=== PATIENT | female | born 1950 | race Caucasian/White ===

== ENCOUNTER 2016-11-15 13:25 | Emergency (ER) | payer MEDICARE ==
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
--- NOTE | 2016-11-15 15:16 | CT ---
Cervical Spine wo Cont HISTORY: Pain. Dose: Total DLP 1308. COMPARISON: None FINDINGS: Diffuse degenerative change moderate disc space narrowing C5-C6. Bridging anterior osteophy keshia at C4-C5 and C5-C6. No fracture or subluxation. Anterior soft tissues appear normal. The C1-C2 re lationship appears normal. There is moderate bilateral foraminal narrowing C5-C6 from uncinate spurri ng. Impression: Degenerative changes. No acute fracture or subluxation.
--- NOTE | 2016-11-15 15:38 | CT ---
Head wo Cont INDICATION: Headache. Dose: Total DLP 995. FINDINGS: No acute intracranial hemorrhage, mass, or edema. Visualized portions of the paranasal sinu ses and mastoid air cells are clear. Mild chronic white matter change in the periventricular region. Soft tissues are negative. IMPRESSION: 1. Chronic changes. No acute intracranial abnormality.
[2016-11-15] MEDS ORDERED: Ketorolac 60 MG/2 ML SDV IM ONE (15:51)
[2016-11-15 16:25] VITALS: BP 123/67
== END 2016-11-15 16:52 | disposition home or self-care (01) ==
LOC: JP.ED 13:25
DX: M54.2 Cervicalgia (principal); E11.40 Type 2 diabetes mellitus with diabetic neuropathy, unspecified; E11.21 Type 2 diabetes mellitus with diabetic nephropathy; M19.90 Unspecified osteoarthritis, unspecified site; E78.00 Pure hypercholesterolemia, unspecified; J45.909 Unspecified asthma, uncomplicated; I10 Essential (primary) hypertension; E66.9 Obesity, unspecified; Z88.1 Allergy status to other antibiotic agents; Z88.5 Allergy status to narcotic agent; Z79.899 Other long term (current) drug therapy; Z98.51 Tubal ligation status; Z68.41 Body mass index [BMI] 40.0-44.9, adult
CPT/HCPCS: 36415; 70450; 72125; 80053; 85025; 96372; 99284; J1885; 99283

== ENCOUNTER 2019-01-30 14:08 | Emergency (ER) | payer MEDICARE ==
[2019-01-30] MEDS ORDERED: Diphtheria,Pertussis(Acell),Tetanus Vaccine 0.5 ML SDV IM ONE (14:13)
[2019-01-30] MEDS ORDERED: Bacitracin Oint 1 GM U/D Packet TOP ONE (14:14)
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
[2019-01-30 15:13] VITALS: BP 129/54; PULSE 77
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
--- NOTE | 2019-02-21 18:00 | OR ---
DATE OF PROCEDURE: 01/30/2019 SURGEON: Rafi Dennison MD PREOPERATIVE DIAGNOSIS: Laceration, left index finger involving extensor tendon at the distal interphalangeal joint. POSTOPERATIVE DIAGNOSIS: Laceration, left index finger involving extensor tendon at the distal interphalangeal joint. PROCEDURE: Repair of the extensor tendon, left index finger, and closure of laceration. ANESTHESIA: Digital block. INDICATIONS: Ms. Grimes is a very pleasant 68-year-old female who was working on a craft project at home and sustained a laceration of her left index finger from a Dremel blade. The laceration is across the DIP joint and she shows a mallet deformity. I was asked to consult by the ED physician. PROCEDURE IN DETAIL: After adequate digital block was established, the wound was irrigated and cleansed. There was no evidence of foreign material or gross contamination. The ends of the extensor tendon were identified. These were then closed. This was then repaired using a 4-0 nylon with a locking stitch. The skin was then also closed with a 4-0 nylon in interrupted fashion. Sterile dressing was applied and the finger was then splinted in extension. Arrangements were made for followup. She will be discharged on an antibiotic and pain medications. The patient was instructed to maintain extension of the DIP joint. Rafi Dennison MD /[id number]
== END 2019-01-30 17:05 | disposition home or self-care (01) ==
LOC: JP.ED 14:08
DX: S61.211A Laceration without foreign body of left index finger without damage to nail, initial encounter (principal); Z23 Encounter for immunization
CPT/HCPCS: 26418; 90471; 90715; 99283; J2001

== ENCOUNTER 2019-10-16 07:30 | Inpatient (IN) | payer MEDICARE ==
[2019-10-16] MEDS ORDERED: Propofol 200 MG/20 ML SDV ONE ×2 (09:19→11:23)
[2019-10-16] MEDS ORDERED: Midazolam 1 MG/ML 2 ML SDV ONE (09:19)
[2019-10-16] MEDS ORDERED: fentaNYL 100 MCG/2 ML SDV ONE (09:19)
[2019-10-16] MEDS: Dextrose 5%-Lactated Ringers 1,000 ML IV SCH ×2 (09:24→16:17)
[2019-10-16] MEDS ORDERED: Albuterol 8 GM Inhaler INH PRN (14:45)
[2019-10-16] MEDS ORDERED: traZODone 50 MG Tab PO PRN (14:49)
[2019-10-16] MEDS ORDERED: 50% Dextrose in Water 50 ML Syringe IVPUSH PRN (14:51)
[2019-10-16] MEDS ORDERED: Glucose Gel 15 GM in 37.5 GM Tube PO PRN (14:51)
[2019-10-16] MEDS ORDERED: Glucagon,Human Recombinant 1 MG Vial IM PRN (14:51)
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
[2019-10-16] MEDS: ARIPiprazole 10 MG Tab PO SCH (16:30)
[2019-10-16] MEDS: Loratadine 10 MG Tab PO SCH (16:30)
[2019-10-16] MEDS: carBAMazepine 200 MG Tab PO SCH ×2 (16:30→20:27)
[2019-10-16] MEDS: Sertraline 25 MG Tab PO SCH (16:31)
[2019-10-16] MEDS: Mirabegron 25 MG Tab Extended Release PO SCH (16:31)
[2019-10-16] MEDS: Magnesium Sulfate/Water 2 GM in Premix Bag 1 BAG IV SCH ×2 (16:32→21:09)
[2019-10-16] MEDS: Insulin Lispro 100 Unit/ML 3 ML KwikPen SUBCUT PRN ×2 (16:39→20:27)
[2019-10-16] MEDS: traZODone 50 MG Tab PO SCH (20:27)
[2019-10-16] MEDS: Latanoprost 0.005% Ophth Soln 2.5 ML Bottle EYELF SCH (20:28)
[2019-10-16] MEDS ORDERED: Insulin Glargine,Human Rec. Analog 100 Units/ML 3 ML Pen SUBCUT ONE (21:00)
[2019-10-16] MEDS ORDERED: FLOVENT INH SCH (21:00)
[2019-10-16] MEDS ORDERED: PULMICORT INH SCH (21:00)
[2019-10-17] MEDS: Dextrose 5%-Lactated Ringers 1,000 ML IV SCH (02:19)
[2019-10-17] MEDS ORDERED: Albuterol 8 GM Inhaler INH ONE (06:00)
[2019-10-17] MEDS ORDERED: cefOXitin 2 GM in Sodium Chloride 0.9% 50 ML IV ONE (06:00)
[2019-10-17] MEDS ORDERED: Naloxone 0.4 MG/ML SDV IVPUSH PRN ×2 (06:00→09:00)
[2019-10-17] MEDS ORDERED: Lidocaine 1% with EPINEPHrine 1:100,000 50 ML MDV ONE (06:30)
[2019-10-17] MEDS ORDERED: Bupivacaine 0.5% 50 ML MDV ONE (06:30)
[2019-10-17] MEDS ORDERED: fentaNYL 250 MCG/5 ML SDV ONE (06:33)
[2019-10-17] MEDS ORDERED: Dexamethasone 4 MG/ML SDV ONE (06:34)
[2019-10-17] MEDS ORDERED: Succinylcholine 200 MG/10 ML MDV ONE (06:34)
[2019-10-17] MEDS ORDERED: Ondansetron 4 MG/2 ML SDV ONE (06:34)
[2019-10-17] MEDS ORDERED: Propofol 200 MG/20 ML SDV ONE (06:34)
[2019-10-17] MEDS ORDERED: Rocuronium 50 MG/5 ML Vial ONE (06:34)
[2019-10-17] MEDS ORDERED: Glycopyrrolate 0.2 MG/ML 5 ML MDV ONE (06:34)
[2019-10-17] MEDS ORDERED: Neostigmine Methylsulfate 1 MG/ML 5 ML Syringe ONE (06:34)
[2019-10-17] MEDS: carBAMazepine 200 MG Tab PO SCH ×3 (06:35→20:28)
[2019-10-17] MEDS ORDERED: Sodium Chloride 0.9% 10 ML ONE (07:14)
[2019-10-17] MEDS ORDERED: Meropenem 500 MG SDV ONE (07:29)
[2019-10-17] MEDS ORDERED: Lactated Ringers 1,000 ML ONE (07:33)
[2019-10-17] MEDS ORDERED: Naloxone 0.4 MG/ML SDV IV PRN (09:00)
[2019-10-17] MEDS ORDERED: diphenhydrAMINE 50 MG/ML SDV IVPUSH PRN (09:00)
[2019-10-17] MEDS: Dextrose 5%-Lactated Ringers 1,000 ML with Naloxone 0.4 MG IV SCH ×6 (09:16→23:08)
[2019-10-17] MEDS ORDERED: Ondansetron 4 MG/2 ML SDV IVPUSH PRN (10:00)
[2019-10-17] MEDS: Insulin Lispro 100 Unit/ML 3 ML KwikPen SUBCUT PRN (10:09)
[2019-10-17] MEDS: hydrOXYzine HCL 100 MG/2 ML SDV IM PRN (10:09)
[2019-10-17] MEDS: ARIPiprazole 10 MG Tab PO SCH (10:10)
[2019-10-17] MEDS: Sertraline 25 MG Tab PO SCH (10:11)
[2019-10-17] MEDS: Mirabegron 25 MG Tab Extended Release PO SCH (10:11)
[2019-10-17] MEDS: Pantoprazole 40 MG Vial IVPUSH SCH (10:11)
[2019-10-17] MEDS: Acetaminophen 325 MG Tab PO SCH ×3 (10:12→22:22)
[2019-10-17] MEDS: Loratadine 10 MG Tab PO SCH (10:16)
[2019-10-17] MEDS: Phenol/Sodium Phenolate Spray 180 ML Bottle MUCMEM PRN ×2 (10:27→13:02)
[2019-10-17] MEDS ORDERED: Lactated Ringers 500 ML IV ONE ×2 (12:15→14:15)
[2019-10-17] MEDS: cefOXitin 2 GM in Sodium Chloride 0.9% 50 ML IV SCH ×2 (13:18→19:57)
[2019-10-17] MEDS: Magnesium Sulfate/Water 2 GM in Premix Bag 1 BAG IV SCH ×2 (13:54→19:57)
--- NOTE | 2019-10-17 15:27 | PCM.CONSN ---
- General Info Date of Service: 10/17/19 Subjective Update: Ms. Grimes has remained stable since admission yesterday. She was taken to the operating room earlier this morning for partial colon resection and management of her large sessile polyp. She has been stable during the initial postoperative period. - Review of Systems Pulmonary: Reports: No Symptoms Cardiovascular: Reports: No Symptoms Gastrointestinal: Reports: Abdominal Pain. Denies: Diarrhea, Difficulty Swallowing, Nausea, Vomiting - Patient Data Vitals - Most Recent: Last Vital Signs Temp 97.5 F 10/17/19 11:00 Pulse 72 10/17/19 08:45 Resp 12 10/17/19 13:00 BP 129/61 10/17/19 13:00 Pulse Ox 96 10/17/19 13:00 Weight - Most Recent: 214 lb I&O - Last 24 Hours: Intake & Output 10/17/19 10/17/19 10/17/19 06:59 14:59 22:59 Intake Total 1153 550 Output Total 717 Balance 1153 -167 Lab Results Last 24 Hours: Laboratory Results - last 24 hr 10/16/19 10/17/19 10/17/19 Range/Units 13:55 05:50 09:31 Magnesium 2.4 D (1.8-2.4) mg/dL NT-Pro-B Natriuret Pep 293 H (5-125) pg/mL Carcinoembryonic Ag 1.0 (0.0-4.7) ng/mL Med Orders - Current: Current Medications Acetaminophen (Tylenol) 650 mg PO Q6H [facility] Last Admin: 10/17/19 10:12 Dose: 650 mg Documented by: Albuterol (Ventolin Hfa) 2 gm INH Q4H PRN PRN Reason: Shortness of Breath Aripiprazole (Abilify) 2.5 mg PO DAILY [facility] Last Admin: 10/17/19 10:10 Dose: 2.5 mg Documented by: Carbamazepine (Tegretol Tab) 200 mg PO TID [facility] Last Admin: 10/17/19 06:35 Dose: 200 mg Documented by: Dextrose (Glutose 15) 15 gm PO ASDIRECTED PRN PRN Reason: HYPOGLYCEMIA Dextrose/Water (Dextrose 50% In Water) 50 ml IVPUSH ASDIRECTED PRN PRN Reason: HYPOGLYCEMIA Diphenhydramine HCl (Benadryl) 25 mg IVPUSH Q6H PRN PRN Reason: ITCHING Glucagon (Glucagen) 1 mg IM ASDIRECTED PRN PRN Reason: HYPOGLYCEMIA Hydroxyzine HCl (Vistaril) 75 mg IM Q4H PRN PRN Reason: PAIN Last Admin: 10/17/19 10:09 Dose: 75 mg Documented by: Fentanyl 2,500 mcg/ Sodium (Chloride) 250 mls @ 0 mls/hr EPIDUR TITRATE [facility]; Protocol Naloxone HCl 0.4 mg/ Dextrose/ (Lactated Ringer's) 1,001 mls @ 150 mls/hr IV .Q6H41M [facility] Last Admin: 10/17/19 09:16 Dose: 150 mls/hr Documented by: Cefoxitin Sodium 2 gm/ Sodium (Chloride) 50 mls @ 100 mls/hr IV Q6H [facility] Stop: 10/18/19 14:29 Last Admin: 10/17/19 13:18 Dose: 100 mls/hr Documented by: Magnesium Sulfate 2 gm/ Premix 50 mls @ 25 mls/hr IV Q6H [facility] Last Admin: 10/17/19 13:54 Dose: 25 mls/hr Documented by: Insulin Human Lispro (Humalog) 0 unit SUBCUT Q6H [facility]; Protocol Latanoprost (Xalatan 0.005% Ophth Soln) 0 ml EYELF BEDTIME [facility] Last Admin: 10/16/19 20:28 Dose: 1 drop Documented by: Loratadine (Claritin) 10 mg PO DAILY [facility] Last Admin: 10/17/19 10:16 Dose: Not Given Documented by: Mirabegron (Myrbetriq) 50 mg PO DAILY [facility] Last Admin: 10/17/19 10:11 Dose: 50 mg Documented by: Naloxone HCl (Narcan) 0.1 mg IVPUSH Q5M PRN PRN Reason: RESP RATE LESS THAN 6/MINUTE Naloxone HCl (Narcan) 0.4 mg IV ASDIRECTED PRN PRN Reason: ITCHING Ondansetron HCl (Zofran) 4 mg IVPUSH Q4H PRN PRN Reason: Nausea/Vomiting Pantoprazole Sodium (Protonix Iv) 40 mg IVPUSH Q24H [facility] Last Admin: 10/17/19 10:11 Dose: 40 mg Documented by: Phenol (Phenaseptic Liquid) 0 ml MUCMEM Q2H PRN PRN Reason: Sore Throat Last Admin: 10/17/19 13:02 Dose: 1 dose Documented by: Quinapril HCl (Accupril) 10 mg PO DAILY [facility] Last Admin: 10/17/19 10:10 Dose: 10 mg Documented by: Sertraline HCl (Zoloft) 75 mg PO DAILY [facility] Last Admin: 10/17/19 10:11 Dose: 75 mg Documented by: Trazodone HCl (Trazodone) 150 mg PO BEDTIME [facility] Last Admin: 10/16/19 20:27 Dose: 150 mg Documented by: Trazodone HCl (Trazodone) 12.5 - 50 mg PO ASDIRECTED PRN PRN Reason: * Discontinued Medications Albuterol (Ventolin Hfa) 0 gm INH ONETIME ONE Stop: 10/17/19 06:01 Last Admin: 10/17/19 06:37 Dose: 2 inh Documented by: Bupivacaine HCl (Marcaine 0.5%) Confirm Administered Dose 50 ml .ROUTE .STK-MED ONE Stop: 10/17/19 06:31 Carbamazepine (Tegretol Tab) 200 mg PO TID [facility] Stop: 10/16/19 21:01 Last Admin: 10/16/19 20:27 Dose: 200 mg Documented by: Dexamethasone (Dexamethasone) Confirm Administered Dose 4 mg .ROUTE .STK-MED ONE Stop: 10/17/19 06:35 Diphenhydramine HCl (Benadryl) 50 mg IVPUSH Q6H PRN PRN Reason: ITCHING Fentanyl (Sublimaze) Confirm Administered Dose 100 mcg .ROUTE .STK-MED ONE Stop: 10/16/19 09:20 Fentanyl (Sublimaze) Confirm Administered Dose 250 mcg .ROUTE .STK-MED ONE Stop: 10/17/19 06:34 Glycopyrrolate (Robinul) Confirm Administered Dose 1 mg .ROUTE .STK-MED ONE Stop: 10/17/19 06:35 Dextrose/Lactated Ringer's (Dextrose 5%-Lactated Ringers) 1,000 mls @ 100 mls/hr IV ASDIRECTED [facility] Last Admin: 10/17/19 02:19 Dose: 100 mls/hr Documented by: Cefoxitin Sodium 2 gm/ Sodium (Chloride) 50 mls @ 100 mls/hr IV ONCALL ONE Stop: 10/17/19 06:29 Last Admin: 10/17/19 06:34 Dose: 100 mls/hr Documented by: Magnesium Sulfate 2 gm/ Premix 50 mls @ 25 mls/hr IV Q6H [facility] Stop: 10/16/19 23:59 Last Admin: 10/16/19 21:09 Dose: 25 mls/hr Documented by: Sodium Chloride (Normal Saline) Confirm Administered Dose 10 mls @ as directed .ROUTE .STK-MED ONE Stop: 10/17/19 07:15 Lactated Ringer's (Ringers, Lactated) Confirm Administered Dose 1,000 mls @ as directed .ROUTE .STK-MED ONE Stop: 10/17/19 07:34 Lactated Ringer's (Ringers, Lactated) 500 mls @ 500 mls/hr IV ONETIME ONE Stop: 10/17/19 13:14 Last Admin: 10/17/19 12:15 Dose: 500 mls/hr Documented by: Lactated Ringer's (Ringers, Lactated) 500 mls @ 500 mls/hr IV ONETIME ONE Stop: 10/17/19 15:14 Insulin Glargine (Lantus Solostar) 10 units SUBCUT ONETIME ONE Stop: 10/16/19 21:01 Last Admin: 10/16/19 20:26 Dose: 10 units Documented by: Insulin Human Lispro (Humalog) 0 unit SUBCUT Q6H PRN; Protocol PRN Reason: MEDIUM CORRECTIONAL DOSING Last Admin: 10/17/19 10:09 Dose: 3 units Documented by: Lidocaine/Epinephrine (Xylocaine 1% With Epinephrine 1:100,000) Confirm Administered Dose 50 ml .ROUTE .STK-MED ONE Stop: 10/17/19 06:31 Meropenem (Merrem) Confirm Administered Dose 500 mg .ROUTE .STK-MED ONE Stop: 10/17/19 07:30 Last Admin: 10/17/19 07:53 Dose: 500 mg Documented by: Midazolam HCl (Versed 1 Mg/Ml) Confirm Administered Dose 2 mg .ROUTE .STK-MED ONE Stop: 10/16/19 09:20 Neostigmine Methylsulfate (Neostigmine) Confirm Administered Dose 5 mg .ROUTE .STK-MED ONE Stop: 10/17/19 06:35 Ondansetron HCl (Zofran) Confirm Administered Dose 4 mg .ROUTE .STK-MED ONE Stop: 10/17/19 06:35 Propofol (Diprivan 20 Ml) Confirm Administered Dose 200 mg .ROUTE .STK-MED ONE Stop: 10/16/19 09:20 Propofol (Diprivan 20 Ml) Confirm Administered Dose 200 mg .ROUTE .STK-MED ONE Stop: 10/16/19 11:24 Propofol (Diprivan 20 Ml) Confirm Administered Dose 200 mg .ROUTE .STK-MED ONE Stop: 10/17/19 06:35 Rocuronium Nelson (Zemuron) Confirm Administered Dose 50 mg .ROUTE .STK-MED ONE Stop: 10/17/19 06:35 Succinylcholine Chloride (Quelicin) Confirm Administered Dose 200 mg .ROUTE .STK-MED ONE Stop: 10/17/19 06:35 - Exam Quality Assessment: DVT Prophylaxis General: Sedated, Lethargic Lungs: Clear to Auscultation, Normal Respiratory Effort Cardiovascular: Regular Rate, Regular Rhythm, No Murmurs GI/Abdominal Exam: Soft, No Organomegaly, Tender. No: Distended, Guarding, Rigid, Rebound Extremities: Non-Tender, No Pedal Edema Sepsis Event Note - Evaluation Sepsis Screening Result: No Definite Risk - Focused Exam Vital Signs: Vital Signs Temp Pulse Resp BP BP Pulse Ox 10/17/19 13:00 12 129/61 96 10/17/19 12:00 12 110/59 L 94 L 10/17/19 11:30 12 127/64 96 10/17/19 11:00 97.5 F 12 143/64 H 93 L 10/17/19 10:30 13 129/104 H 96 10/17/19 10:10 127/50 L 10/17/19 10:00 13 127/50 L 96 10/17/19 09:46 12 141/58 H 96 10/17/19 09:31 96.6 F L 12 139/58 L 94 L 10/17/19 09:23 12 146/56 H 94 L 10/17/19 09:02 12 158/62 H 90 L 10/17/19 08:45 96.8 F L 72 14 169/72 H 99 10/17/19 08:40 72 14 166/74 H 99 10/17/19 08:35 75 14 167/78 H 100 10/17/19 08:30 96.3 F L 73 14 146/69 H 99 10/17/19 08:25 75 14 164/69 H 10/17/19 08:20 77 14 165/69 H 99 10/17/19 08:15 96.8 F L 77 12 165/63 H 94 L 10/17/19 04:00 96.6 F L 77 16 138/50 L 98 Consult PN Assessment/Plan Procedures: Procedures ASSAY OF CREATININE (06/13/18) ASSAY OF LACTIC ACID (01/09/18) ASSAY OF LIPASE (01/09/18) ASSAY OF TROPONIN QUANT (02/01/13) BREAST TOMOSYNTHESIS BI (04/25/18) C-REACTIVE PROTEIN (01/09/18) CHEST X-RAY 2VW FRONTAL&LATL (02/01/13) COMP SCREEN MAMMOGRAM ADD-ON (01/06/16) COMPLETE CBC W/AUTO DIFF WBC (01/09/18) COMPREHEN METABOLIC PANEL (01/09/18) CT HEAD/BRAIN W/O DYE (11/15/16) CT LUMBAR SPINE W/O DYE (12/11/13) CT NECK SPINE W/O DYE (11/15/16) CT UPPER EXTREMITY W/O DYE (04/03/16) CULTURE OTHR SPECIMN AEROBIC (05/12/15) ELECTROCARDIOGRAM TRACING (02/01/13) EMERGENCY DEPT VISIT (01/30/19) EMERGENCY DEPT VISIT (01/09/18) EMERGENCY DEPT VISIT (09/19/14) EMERGENCY DEPT VISIT (09/19/14) EMERGENCY DEPT VISIT (09/03/13) EMERGENCY DEPT VISIT (09/03/13) EVALUATION OF WHEEZING (04/03/15) EXC TR-EXT B9+CHELSEY 2.1-3CM (05/21/15) EXTRACRANIAL BILAT STUDY (09/24/13) HOT OR COLD PACKS THERAPY (03/01/17) HYDRATE IV INFUSION ADD-ON (01/09/18) IMMUNIZATION ADMIN (01/30/19) INFLUENZA ASSAY W/OPTIC (01/09/18) METABOLIC PANEL TOTAL CA (04/03/16) MRI BRAIN STEM W/O & W/DYE (06/13/18) MRI JOINT UPR EXTREM W/O DYE (06/15/17) MRI LUMBAR SPINE W/O DYE (09/26/13) ORTHOTIC MGMT&TRAING 1ST ENC (02/02/17) OT EVAL LOW COMPLEX 30 MIN (02/02/17) OT EVALUATION (07/11/14) PT EVAL LOW COMPLEX 20 MIN (01/11/17) REPAIR FINGER TENDON (01/30/19) ROUTINE VENIPUNCTURE (06/13/18) SCR MAMMO BI INCL CAD (04/25/18) SMEAR GRAM STAIN (05/12/15) TDAP VACCINE 7 YRS/> IM (01/30/19) THER/PROPH/DIAG INJ IV PUSH (01/09/18) THER/PROPH/DIAG INJ SC/IM (11/15/16) THER/PROPH/DIAG IV INF INIT (02/01/13) THERAPEUTIC EXERCISES (03/01/17) TX/PRO/DX INJ NEW DRUG ADDON (01/09/18) TX/PRO/DX INJ SAME DRUG GETTER FILLER (01/09/18) ULTRASOUND THERAPY (07/11/14) URINALYSIS AUTO W/SCOPE (01/09/18) X-RAY EXAM L-S SPINE 2/3 VWS (12/11/13) X-RAY EXAM OF SHOULDER (04/03/16) Problem List Initiated/Reviewed/Updated: Yes Plan: ASSESSMENT AND RECOMMENDATIONS RECENT HEMATOCHEZIA SECONDARY TO A LARGE SESSILE POLYP-status post surgery earlier today for partial colon resection -Surgical care per Dr. Kaiser TYPE 2 DIABETES [id number] by recent history -Long-acting insulin as ordered by Dr. Kaiser -4 times daily glucometers -Low-dose sliding scale Humalog HISTORY OF ASTHMA-minimal symptoms, rarely requires use of her inhaler -Albuterol as needed CHRONIC KIDNEY DISEASE STAGE IIIa -Closely monitor urine output and renal function
[2019-10-17] MEDS: Insulin Lispro 100 Unit/ML 3 ML KwikPen SUBCUT SCH ×2 (16:28→22:23)
[2019-10-17] MEDS: traZODone 50 MG Tab PO SCH (20:28)
[2019-10-17] MEDS: Latanoprost 0.005% Ophth Soln 2.5 ML Bottle EYELF SCH (20:28)
[2019-10-17] MEDS: diphenhydrAMINE 50 MG/ML SDV IVPUSH PRN (22:23)
[2019-10-18] MEDS: cefOXitin 2 GM in Sodium Chloride 0.9% 50 ML IV SCH ×3 (01:53→14:19)
[2019-10-18] MEDS: Magnesium Sulfate/Water 2 GM in Premix Bag 1 BAG IV SCH ×4 (01:53→20:27)
[2019-10-18] MEDS: hydrOXYzine HCL 100 MG/2 ML SDV IM PRN (02:00)
[2019-10-18] MEDS: Acetaminophen 325 MG Tab PO SCH ×4 (03:54→21:29)
[2019-10-18] MEDS: fentaNYL 2,500 MCG in Sodium Chloride 0.9% 200 ML EPIDUR SCH (04:08)
[2019-10-18] MEDS: Insulin Lispro 100 Unit/ML 3 ML KwikPen SUBCUT SCH ×4 (05:04→21:28)
[2019-10-18] MEDS: Dextrose 5%-Lactated Ringers 1,000 ML with Naloxone 0.4 MG IV SCH ×6 (05:46→15:37)
[2019-10-18] MEDS: diphenhydrAMINE 50 MG/ML SDV IVPUSH PRN ×2 (08:33→16:29)
[2019-10-18] MEDS: Mirabegron 25 MG Tab Extended Release PO SCH (08:48)
[2019-10-18] MEDS: ARIPiprazole 10 MG Tab PO SCH (08:49)
[2019-10-18] MEDS: Loratadine 10 MG Tab PO SCH (08:49)
[2019-10-18] MEDS: carBAMazepine 200 MG Tab PO SCH ×3 (08:53→21:29)
[2019-10-18] MEDS: Sertraline 25 MG Tab PO SCH (08:54)
[2019-10-18] MEDS: Potassium Phos in 0.9 % NaCl 15 MMOL in Premix Bag 1 BAG IV SCH ×6 (10:00→14:21)
--- NOTE | 2019-10-18 10:17 | PCM.CONSN ---
- General Info Date of Service: 10/18/19 Subjective Update: Ms. Grimes has remained stable following surgery yesterday. Vital signs have remained good and she has been afebrile. Denies any symptoms of chest pain or shortness of breath. Renal function relatively stable compared to baseline. Functional Status: Reports: Tolerating Diet, Ambulating - Review of Systems General: Reports: Weakness, Fatigue. Denies: Fever, Chills Pulmonary: Reports: No Symptoms Cardiovascular: Reports: No Symptoms Gastrointestinal: Reports: Abdominal Pain. Denies: Difficulty Swallowing, Flatus, Hematochezia, Melena, Nausea, Vomiting Genitourinary: Reports: No Symptoms - Patient Data Vitals - Most Recent: Last Vital Signs Temp 98.9 F 10/18/19 07:42 Pulse 75 10/18/19 07:42 Resp 16 10/18/19 07:42 BP 134/56 L 10/18/19 08:48 Pulse Ox 95 10/18/19 07:42 Weight - Most Recent: 214 lb I&O - Last 24 Hours: Intake & Output 10/17/19 10/18/19 10/18/19 22:59 06:59 14:59 Intake Total 1831 2099 770 Output Total 395 830 80 Balance 1436 1269 690 Lab Results Last 24 Hours: Laboratory Results - last 24 hr 10/18/19 10/18/19 Range/Units 04:00 04:30 WBC 8.8 (4.5-11.0) K/uL RBC 3.35 (3.30-5.50) M/uL Hgb 10.0 L (12.0-15.0) g/dL Hct 32.6 L (36.0-48.0) % MCV 97 (80-98) fL MCH 30 (27-31) pg MCHC 31 L (32-36) % Plt Count 177 (150-400) K/uL Sodium 139 L (140-148) mmol/L Potassium 4.0 (3.6-5.2) mmol/L Chloride 106 (100-108) mmol/L Carbon Dioxide 29 (21-32) mmol/L Anion Gap 8.0 (5.0-14.0) mmol/L BUN 7 D (7-18) mg/dL Creatinine 1.2 H (0.6-1.0) mg/dL Est Cr Clr Drug Dosing 34.01 mL/min Estimated GFR (MDRD) 44 L (>60) Glucose 197 H (74-106) mg/dL Calcium 8.1 L (8.5-10.1) mg/dL Phosphorus 2.3 L (2.5-4.9) mg/dL Total Bilirubin 0.3 (0.2-1.0) mg/dL AST 15 (15-37) U/L ALT 18 (12-78) U/L Alkaline Phosphatase 70 (46-116) U/L NT-Pro-B Natriuret Pep 784 H (5-125) pg/mL Total Protein 5.9 L (6.4-8.2) g/dL Albumin 2.6 L (3.4-5.0) g/dL Globulin 3.3 (2.3-3.5) g/dL Albumin/Globulin Ratio 0.8 L (1.2-2.2) Med Orders - Current: Current Medications Acetaminophen (Tylenol) [address] [facility] Last Admin: 10/18/19 09:37 Dose: 650 mg Documented by: Albuterol (Ventolin Hfa) 2 gm INH Q4H PRN PRN Reason: Shortness of Breath Aripiprazole (Abilify) 2.[address] [facility] Last Admin: 10/18/19 08:49 Dose: 2.5 mg Documented by: Carbamazepine (Tegretol Tab) [address] [facility] Last Admin: 10/18/19 08:53 Dose: 200 mg Documented by: Ropivacaine 48 ml/Dexamethasone 8 mg/Epinephrine HCl 0.4 mg/ Sodium Chloride 29.6 ml [address] [facility] Dextrose (Glutose 15) 15 gm PO ASDIRECTED PRN PRN Reason: HYPOGLYCEMIA Dextrose/Water (Dextrose 50% In Water) 50 ml IVPUSH ASDIRECTED PRN PRN Reason: HYPOGLYCEMIA Diphenhydramine HCl (Benadryl) 25 mg IVPUSH Q6H PRN PRN Reason: ITCHING Last Admin: 10/18/19 08:33 Dose: 25 mg Documented by: Glucagon (Glucagen) 1 mg IM ASDIRECTED PRN PRN Reason: HYPOGLYCEMIA Hydroxyzine HCl (Vistaril) 75 mg IM Q4H PRN PRN Reason: PAIN Last Admin: 10/18/19 02:00 Dose: 75 mg Documented by: Fentanyl 2,500 mcg/ Sodium (Chloride) 250 mls @ 0 mls/hr EPIDUR TITRATE [facility]; Protocol Last Admin: 10/18/19 04:08 Dose: 120 mcg/hr, 12 mls/hr Documented by: Cefoxitin Sodium 2 gm/ Sodium (Chloride) 50 mls @ 100 mls/hr IV Q6H [facility] Stop: 10/18/19 14:29 Last Admin: 10/18/19 07:53 Dose: 100 mls/hr Documented by: Magnesium Sulfate 2 gm/ Premix 50 mls @ 25 mls/hr IV Q6H [facility] Stop: 10/19/19 09:59 Last Admin: 10/18/19 07:56 Dose: 25 mls/hr Documented by: Naloxone HCl 0.4 mg/ Dextrose/ (Lactated Ringer's) 1,001 mls @ 80 mls/hr IV .[id number] [facility] Last Admin: 10/18/19 08:46 Dose: Not Given Documented by: Potassium Phosphate 15 mmol/ (Premix) 250 mls @ 125 mls/hr IV Q2H [facility] Stop: 10/18/19 14:59 Last Admin: 10/18/19 10:00 Dose: 125 mls/hr Documented by: Insulin Human Lispro (Humalog) [address] [facility]; Protocol Last Admin: 10/18/19 05:04 Dose: 3 unit Documented by: Latanoprost (Xalatan 0.005% Ophth Soln) [address] [facility] Last Admin: 10/17/19 20:28 Dose: 1 drop Documented by: Loratadine (Claritin) [address] [facility] Last Admin: 10/18/19 08:49 Dose: 10 mg Documented by: Mirabegron (Myrbetriq) [address] [facility] Last Admin: 10/18/19 08:48 Dose: 50 mg Documented by: Naloxone HCl (Narcan) 0.1 mg IVPUSH Q5M PRN PRN Reason: RESP RATE LESS THAN 6/MINUTE Naloxone HCl (Narcan) 0.4 mg IV ASDIRECTED PRN PRN Reason: ITCHING Ondansetron HCl (Zofran) 4 mg IVPUSH Q4H PRN PRN Reason: Nausea/Vomiting Pantoprazole Sodium (Protonix Iv) [address] [facility] Last Admin: 10/17/19 10:11 Dose: 40 mg Documented by: Phenol (Phenaseptic Liquid) 0 ml MUCMEM Q2H PRN PRN Reason: Sore Throat Last Admin: 10/17/19 13:02 Dose: 1 dose Documented by: Quinapril HCl (Accupril) [address] [facility] Last Admin: 10/18/19 08:48 Dose: 10 mg Documented by: Sertraline HCl (Zoloft) [address] [facility] Last Admin: 10/18/19 08:54 Dose: 75 mg Documented by: Trazodone HCl (Trazodone) [address] [facility] Last Admin: 10/17/19 20:28 Dose: 150 mg Documented by: Trazodone HCl (Trazodone) 12.5 - 50 mg PO ASDIRECTED PRN PRN Reason: * Discontinued Medications Albuterol (Ventolin Hfa) 0 gm INH ONETIME ONE Stop: 10/17/19 06:01 Last Admin: 10/17/19 06:37 Dose: 2 inh Documented by: Bupivacaine HCl (Marcaine 0.5%) Confirm Administered Dose 50 ml .ROUTE .STK-MED ONE Stop: 10/17/19 06:31 Carbamazepine (Tegretol Tab) [address] [facility] Stop: 10/16/19 21:01 Last Admin: 10/16/19 20:27 Dose: 200 mg Documented by: Dexamethasone (Dexamethasone) Confirm Administered Dose 4 mg .ROUTE .STK-MED ONE Stop: 10/17/19 06:35 Diphenhydramine HCl (Benadryl) 50 mg IVPUSH Q6H PRN PRN Reason: ITCHING Fentanyl (Sublimaze) Confirm Administered Dose 100 mcg .ROUTE .STK-MED ONE Stop: 10/16/19 09:20 Fentanyl (Sublimaze) Confirm Administered Dose 250 mcg .ROUTE .STK-MED ONE Stop: 10/17/19 06:34 Glycopyrrolate (Robinul) Confirm Administered Dose 1 mg .ROUTE .STK-MED ONE Stop: 10/17/19 06:35 Dextrose/Lactated Ringer's (Dextrose 5%-Lactated Ringers) 1,000 mls @ 100 mls/hr IV ASDIRECTED [facility] Last Admin: 10/17/19 02:19 Dose: 100 mls/hr Documented by: Cefoxitin Sodium 2 gm/ Sodium (Chloride) 50 mls @ 100 mls/hr IV ONCALL ONE Stop: 10/17/19 06:29 Last Admin: 10/17/19 06:34 Dose: 100 mls/hr Documented by: Magnesium Sulfate 2 gm/ Premix 50 mls @ 25 mls/hr IV Q6H [facility] Stop: 10/16/19 23:59 Last Admin: 10/16/19 21:09 Dose: 25 mls/hr Documented by: Sodium Chloride (Normal Saline) Confirm Administered Dose 10 mls @ as directed .ROUTE .STK-MED ONE Stop: 10/17/19 07:15 Lactated Ringer's (Ringers, Lactated) Confirm Administered Dose 1,000 mls @ as directed .ROUTE .STK-MED ONE Stop: 10/17/19 07:34 Naloxone HCl 0.4 mg/ Dextrose/ (Lactated Ringer's) 1,001 mls @ 150 mls/hr IV .Q6H41M [facility] Last Admin: 10/18/19 05:46 Dose: 150 mls/hr Documented by: Lactated Ringer's (Ringers, Lactated) 500 mls @ 500 mls/hr IV ONETIME ONE Stop: 10/17/19 13:14 Last Admin: 10/17/19 12:15 Dose: 500 mls/hr Documented by: Lactated Ringer's (Ringers, Lactated) 500 mls @ 500 mls/hr IV ONETIME ONE Stop: 10/17/19 15:14 Last Admin: 10/17/19 14:15 Dose: 500 mls/hr Documented by: Insulin Glargine (Lantus Solostar) 10 units SUBCUT ONETIME ONE Stop: 10/16/19 21:01 Last Admin: 10/16/19 20:26 Dose: 10 units Documented by: Insulin Human Lispro (Humalog) 0 unit SUBCUT Q6H PRN; Protocol PRN Reason: MEDIUM CORRECTIONAL DOSING Last Admin: 10/17/19 10:09 Dose: 3 units Documented by: Lidocaine/Epinephrine (Xylocaine 1% With Epinephrine 1:100,000) Confirm Administered Dose 50 ml .ROUTE .STK-MED ONE Stop: 10/17/19 06:31 Meropenem (Merrem) Confirm Administered Dose 500 mg .ROUTE .STK-MED ONE Stop: 10/17/19 07:30 Last Admin: 10/17/19 07:53 Dose: 500 mg Documented by: Midazolam HCl (Versed 1 Mg/Ml) Confirm Administered Dose 2 mg .ROUTE .STK-MED ONE Stop: 10/16/19 09:20 Neostigmine Methylsulfate (Neostigmine) Confirm Administered Dose 5 mg .ROUTE .STK-MED ONE Stop: 10/17/19 06:35 Ondansetron HCl (Zofran) Confirm Administered Dose 4 mg .ROUTE .STK-MED ONE Stop: 10/17/19 06:35 Propofol (Diprivan 20 Ml) Confirm Administered Dose 200 mg .ROUTE .STK-MED ONE Stop: 10/16/19 09:20 Propofol (Diprivan 20 Ml) Confirm Administered Dose 200 mg .ROUTE .STK-MED ONE Stop: 10/16/19 11:24 Propofol (Diprivan 20 Ml) Confirm Administered Dose 200 mg .ROUTE .STK-MED ONE Stop: 10/17/19 06:35 Rocuronium [place] (Zemuron) Confirm Administered Dose 50 mg .ROUTE .STK-MED ONE Stop: 10/17/19 06:35 Succinylcholine Chloride (Quelicin) Confirm Administered Dose 200 mg .ROUTE .STK-MED ONE Stop: 10/17/19 06:35 - Exam Quality Assessment: Urine Catheter, DVT Prophylaxis General: Alert, Oriented, Cooperative, Moderate Distress Lungs: Clear to Auscultation, Normal Respiratory Effort Cardiovascular: Regular Rate, Regular Rhythm, No Murmurs GI/Abdominal Exam: Soft, No Organomegaly, Tender. No: Distended, Guarding, Rigid, Rebound Extremities: Non-Tender, No Pedal Edema Sepsis Event Note - Evaluation Sepsis Screening Result: No Definite Risk - Focused Exam Vital Signs: Vital Signs Temp Pulse Resp BP BP Pulse Ox 10/18/19 08:48 134/56 L 10/18/19 07:42 98.9 F 75 16 134/56 L 95 10/18/19 07:31 93 L 10/18/19 04:00 98.7 F 73 12 130/48 L 92 L 10/18/19 00:00 98.6 F 11 L 135/58 L 98 Consult PN Assessment/Plan Procedures: Procedures ASSAY OF CREATININE (06/13/18) ASSAY OF LACTIC ACID (01/09/18) ASSAY OF LIPASE (01/09/18) ASSAY OF TROPONIN QUANT (02/01/13) BREAST TOMOSYNTHESIS BI (04/25/18) C-REACTIVE PROTEIN (01/09/18) CHEST X-RAY 2VW FRONTAL&LATL (02/01/13) COMP SCREEN MAMMOGRAM ADD-ON (01/06/16) COMPLETE CBC W/AUTO DIFF WBC (01/09/18) COMPREHEN METABOLIC PANEL (01/09/18) CT HEAD/BRAIN W/O DYE (11/15/16) CT LUMBAR SPINE W/O DYE (12/11/13) CT NECK SPINE W/O DYE (11/15/16) CT UPPER EXTREMITY W/O DYE (04/03/16) CULTURE OTHR SPECIMN AEROBIC (05/12/15) ELECTROCARDIOGRAM TRACING (02/01/13) EMERGENCY DEPT VISIT (01/30/19) EMERGENCY DEPT VISIT (01/09/18) EMERGENCY DEPT VISIT (09/19/14) EMERGENCY DEPT VISIT (09/19/14) EMERGENCY DEPT VISIT (09/03/13) EMERGENCY DEPT VISIT (09/03/13) EVALUATION OF WHEEZING (04/03/15) EXC TR-EXT B9+CHELSEY 2.1-3CM (05/21/15) EXTRACRANIAL BILAT STUDY (09/24/13) HOT OR COLD PACKS THERAPY (03/01/17) HYDRATE IV INFUSION ADD-ON (01/09/18) IMMUNIZATION ADMIN (01/30/19) INFLUENZA ASSAY W/OPTIC (01/09/18) METABOLIC PANEL TOTAL CA (04/03/16) MRI BRAIN STEM W/O & W/DYE (06/13/18) MRI JOINT UPR EXTREM W/O DYE (06/15/17) MRI LUMBAR SPINE W/O DYE (09/26/13) ORTHOTIC MGMT&TRAING 1ST ENC (02/02/17) OT EVAL LOW COMPLEX 30 MIN (02/02/17) OT EVALUATION (07/11/14) PT EVAL LOW COMPLEX 20 MIN (01/11/17) REPAIR FINGER TENDON (01/30/19) ROUTINE VENIPUNCTURE (06/13/18) SCR MAMMO BI INCL CAD (04/25/18) SMEAR GRAM STAIN (05/12/15) TDAP VACCINE 7 YRS/> IM (01/30/19) THER/PROPH/DIAG INJ IV PUSH (01/09/18) THER/PROPH/DIAG INJ SC/IM (11/15/16) THER/PROPH/DIAG IV INF INIT (02/01/13) THERAPEUTIC EXERCISES (03/01/17) TX/PRO/DX INJ NEW DRUG ADDON (01/09/18) TX/PRO/DX INJ SAME DRUG TOWN MANAGER (01/09/18) ULTRASOUND THERAPY (07/11/14) URINALYSIS AUTO W/SCOPE (01/09/18) X-RAY EXAM L-S SPINE 2/3 VWS (12/11/13) X-RAY EXAM OF SHOULDER (04/03/16) Problem List Initiated/Reviewed/Updated: Yes Plan: ASSESSMENT AND RECOMMENDATIONS RECENT HEMATOCHEZIA SECONDARY TO A LARGE SESSILE POLYP-status post surgery yesterday for partial colon resection -Surgical care per Dr. Kaiser TYPE 2 DIABETES HMOESSHN-yole-okppdyamzy by recent history -Long-acting insulin as ordered by Dr. Kaiser -4 times daily glucometers -Low-dose sliding scale Humalog HISTORY OF ASTHMA-minimal symptoms, rarely requires use of her inhaler -Albuterol as needed CHRONIC KIDNEY DISEASE STAGE IIIa -Closely monitor urine output and renal function
[2019-10-18] MEDS: Pantoprazole 40 MG Vial IVPUSH SCH (11:21)
[2019-10-18] MEDS: Latanoprost 0.005% Ophth Soln 2.5 ML Bottle EYELF SCH (21:29)
[2019-10-18] MEDS: traZODone 50 MG Tab PO SCH (21:29)
[2019-10-19] MEDS: fentaNYL 2,500 MCG in Sodium Chloride 0.9% 200 ML EPIDUR SCH ×2 (00:36→21:30)
[2019-10-19] MEDS: Magnesium Sulfate/Water 2 GM in Premix Bag 1 BAG IV SCH ×2 (01:40→09:00)
[2019-10-19] MEDS: Insulin Lispro 100 Unit/ML 3 ML KwikPen SUBCUT SCH ×4 (03:58→21:08)
[2019-10-19] MEDS: Dextrose 5%-Lactated Ringers 1,000 ML with Naloxone 0.4 MG IV SCH ×6 (03:59→16:26)
[2019-10-19] MEDS: Acetaminophen 325 MG Tab PO SCH ×4 (06:07→21:06)
[2019-10-19] MEDS ORDERED: Bupivacaine 0.5% 50 ML MDV ONE (06:46)
[2019-10-19] MEDS ORDERED: Meropenem 500 MG SDV ONE (06:46)
[2019-10-19] MEDS ORDERED: Lidocaine 1% with EPINEPHrine 1:100,000 50 ML MDV ONE (06:46)
[2019-10-19] MEDS ORDERED: fentaNYL 100 MCG/2 ML SDV ONE ×2 (07:10→09:07)
[2019-10-19] MEDS ORDERED: Propofol 200 MG/20 ML SDV ONE ×2 (07:10→09:16)
[2019-10-19] MEDS: Mirabegron 25 MG Tab Extended Release PO SCH (09:03)
[2019-10-19] MEDS: ARIPiprazole 10 MG Tab PO SCH (09:03)
[2019-10-19] MEDS: Loratadine 10 MG Tab PO SCH (09:03)
[2019-10-19] MEDS: Sertraline 25 MG Tab PO SCH (09:04)
[2019-10-19] MEDS: carBAMazepine 200 MG Tab PO SCH ×3 (09:04→21:08)
--- NOTE | 2019-10-19 10:36 | PCM.CONSN ---
- General Info Date of Service: 10/19/19 Subjective Update: Ms. Grimes is stable status post delayed primary closure done earlier this morning. In general she has been doing well, tolerating current diet without difficulty. Functional Status: Reports: Tolerating Diet, Ambulating - Review of Systems General: Reports: No Symptoms Pulmonary: Reports: No Symptoms Cardiovascular: Reports: No Symptoms Gastrointestinal: Reports: Abdominal Pain. Denies: Difficulty Swallowing, Hematochezia, Melena, Nausea, Vomiting - Patient Data Vitals - Most Recent: Last Vital Signs Temp 96.1 F L 10/19/19 08:39 Pulse 78 10/19/19 10:00 Resp 12 10/19/19 10:00 BP 148/68 H 10/19/19 10:00 Pulse Ox 94 L 10/19/19 10:00 Weight - Most Recent: 214 lb I&O - Last 24 Hours: Intake & Output 10/18/19 10/19/19 10/19/19 22:59 06:59 14:59 Intake Total 3093 2444 Output Total 360 855 25 Balance 2733 1589 -25 Lab Results Last 24 Hours: Laboratory Results - last 24 hr 10/19/19 10/19/19 Range/Units 04:00 04:00 WBC 8.6 (4.5-11.0) K/uL RBC 3.27 L (3.30-5.50) M/uL Hgb 9.6 L (12.0-15.0) g/dL Hct 31.8 L (36.0-48.0) % MCV 97 (80-98) fL MCH 29 (27-31) pg MCHC 30 L (32-36) % Plt Count 162 (150-400) K/uL Sodium 140 (140-148) mmol/L Potassium 4.7 (3.6-5.2) mmol/L Chloride 107 (100-108) mmol/L Carbon Dioxide 28 (21-32) mmol/L Anion Gap 5.4 (5.0-14.0) mmol/L BUN 6 L (7-18) mg/dL Creatinine 1.1 H (0.6-1.0) mg/dL Est Cr Clr Drug Dosing 37.10 mL/min Estimated GFR (MDRD) 49 L (>60) Glucose 180 H (74-106) mg/dL Calcium 8.0 L (8.5-10.1) mg/dL Phosphorus 3.6 (2.5-4.9) mg/dL Total Bilirubin 0.3 (0.2-1.0) mg/dL AST 14 L (15-37) U/L ALT 17 (12-78) U/L Alkaline Phosphatase 67 (46-116) U/L NT-Pro-B Natriuret Pep 620 H (5-125) pg/mL Total Protein 6.1 L (6.4-8.2) g/dL Albumin 2.6 L (3.4-5.0) g/dL Globulin 3.5 (2.3-3.5) g/dL Albumin/Globulin Ratio 0.7 L (1.2-2.2) Med Orders - Current: Current Medications Acetaminophen (Tylenol) 650 mg PO Q6H [facility] Last Admin: 10/19/19 06:07 Dose: Not Given Documented by: Albuterol (Ventolin Hfa) 2 gm INH Q4H PRN PRN Reason: Shortness of Breath Aripiprazole (Abilify) 2.5 mg PO DAILY [facility] Last Admin: 10/19/19 09:03 Dose: 2.5 mg Documented by: Bisacodyl (Dulcolax) 10 mg PO BID [facility] Carbamazepine (Tegretol Tab) 200 mg PO TID [facility] Last Admin: 10/19/19 09:04 Dose: 200 mg Documented by: Dextrose (Glutose 15) 15 gm PO ASDIRECTED PRN PRN Reason: HYPOGLYCEMIA Dextrose/Water (Dextrose 50% In Water) 50 ml IVPUSH ASDIRECTED PRN PRN Reason: HYPOGLYCEMIA Diphenhydramine HCl (Benadryl) 25 mg IVPUSH Q6H PRN PRN Reason: ITCHING Last Admin: 10/18/19 16:29 Dose: 25 mg Documented by: Glipizide (Glucotrol) 5 mg PO BID [facility] Glucagon (Glucagen) 1 mg IM ASDIRECTED PRN PRN Reason: HYPOGLYCEMIA Hydroxyzine HCl (Vistaril) 75 mg IM Q4H PRN PRN Reason: PAIN Last Admin: 10/18/19 02:00 Dose: 75 mg Documented by: Fentanyl 2,500 mcg/ Sodium (Chloride) 250 mls @ 0 mls/hr EPIDUR TITRATE [facility]; Protocol Last Admin: 10/19/19 00:36 Dose: 120 mcg/hr, 12 mls/hr Documented by: Naloxone HCl 0.4 mg/ Dextrose/ (Lactated Ringer's) 1,001 mls @ 80 mls/hr IV .[id number] [facility] Last Admin: 10/19/19 09:02 Dose: Not Given Documented by: Insulin Glargine (Lantus Solostar) 18 units SUBCUT BEDTIME [facility] Insulin Human Lispro (Humalog) 0 unit SUBCUT QIDACANDBED [facility]; Protocol Latanoprost (Xalatan 0.005% Ophth Soln) 0 ml EYELF BEDTIME [facility] Last Admin: 10/18/19 21:29 Dose: 1 drop Documented by: Liraglutide (Victoza) 1.2 mg SUBCUT DAILY [facility] Loratadine (Claritin) 10 mg PO DAILY [facility] Last Admin: 10/19/19 09:03 Dose: 10 mg Documented by: Magnesium Hydroxide (Milk Of Magnesia) 30 ml PO BID [facility] Mirabegron (Myrbetriq) 50 mg PO DAILY [facility] Last Admin: 10/19/19 09:03 Dose: 50 mg Documented by: Naloxone HCl (Narcan) 0.1 mg IVPUSH Q5M PRN PRN Reason: RESP RATE LESS THAN 6/MINUTE Naloxone HCl (Narcan) 0.4 mg IV ASDIRECTED PRN PRN Reason: ITCHING Ondansetron HCl (Zofran) 4 mg IVPUSH Q4H PRN PRN Reason: Nausea/Vomiting Oxycodone HCl (Oxycodone) 10 - 20 mg PO Q4H PRN PRN Reason: PAIN Pantoprazole Sodium (Protonix Iv) 40 mg IVPUSH Q24H [facility] Last Admin: 10/18/19 11:21 Dose: 40 mg Documented by: Phenol (Phenaseptic Liquid) 0 ml MUCMEM Q2H PRN PRN Reason: Sore Throat Last Admin: 10/17/19 13:02 Dose: 1 dose Documented by: Quinapril HCl (Accupril) 10 mg PO DAILY [facility] Last Admin: 10/19/19 09:03 Dose: 10 mg Documented by: Senna (Senna) 8.6 mg PO BID [facility] Sertraline HCl (Zoloft) 75 mg PO DAILY [facility] Last Admin: 10/19/19 09:04 Dose: 75 mg Documented by: Trazodone HCl (Trazodone) 150 mg PO BEDTIME [facility] Last Admin: 10/18/19 21:29 Dose: 150 mg Documented by: Trazodone HCl (Trazodone) 12.5 - 50 mg PO ASDIRECTED PRN PRN Reason: * Discontinued Medications Albuterol (Ventolin Hfa) 0 gm INH ONETIME ONE Stop: 10/17/19 06:01 Last Admin: 10/17/19 06:37 Dose: 2 inh Documented by: Bupivacaine HCl (Marcaine 0.5%) Confirm Administered Dose 50 ml .ROUTE .STK-MED ONE Stop: 10/17/19 06:31 Bupivacaine HCl (Marcaine 0.5%) Confirm Administered Dose 50 ml .ROUTE .STK-MED ONE Stop: 10/19/19 06:47 Last Admin: 10/19/19 07:40 Dose: 50 ml Documented by: Carbamazepine (Tegretol Tab) 200 mg PO TID [facility] Stop: 10/16/19 21:01 Last Admin: 10/16/19 20:27 Dose: 200 mg Documented by: Ropivacaine 48 ml/Dexamethasone 8 mg/Epinephrine HCl 0.4 mg/ Sodium Chloride 29.6 ml 0 ml NERVRT ASDIRECTED [facility] Last Admin: 10/19/19 07:32 Dose: 80 syringe Documented by: Dexamethasone (Dexamethasone) Confirm Administered Dose 4 mg .ROUTE .STK-MED ONE Stop: 10/17/19 06:35 Diphenhydramine HCl (Benadryl) 50 mg IVPUSH Q6H PRN PRN Reason: ITCHING Fentanyl (Sublimaze) Confirm Administered Dose 100 mcg .ROUTE .STK-MED ONE Stop: 10/16/19 09:20 Fentanyl (Sublimaze) Confirm Administered Dose 250 mcg .ROUTE .STK-MED ONE Stop: 10/17/19 06:34 Fentanyl (Sublimaze) Confirm Administered Dose 100 mcg .ROUTE .STK-MED ONE Stop: 10/19/19 07:11 Fentanyl (Sublimaze) Confirm Administered Dose 100 mcg .ROUTE .STK-MED ONE Stop: 10/19/19 09:08 Glycopyrrolate (Robinul) Confirm Administered Dose 1 mg .ROUTE .STK-MED ONE Stop: 10/17/19 06:35 Dextrose/Lactated Ringer's (Dextrose 5%-Lactated Ringers) 1,000 mls @ 100 mls/hr IV ASDIRECTED [facility] Last Admin: 10/17/19 02:19 Dose: 100 mls/hr Documented by: Cefoxitin Sodium 2 gm/ Sodium (Chloride) 50 mls @ 100 mls/hr IV ONCALL ONE Stop: 10/17/19 06:29 Last Admin: 10/17/19 06:34 Dose: 100 mls/hr Documented by: Magnesium Sulfate 2 gm/ Premix 50 mls @ 25 mls/hr IV Q6H [facility] Stop: 10/16/19 23:59 Last Admin: 10/16/19 21:09 Dose: 25 mls/hr Documented by: Sodium Chloride (Normal Saline) Confirm Administered Dose 10 mls @ as directed .ROUTE .STK-MED [facility] Stop: 10/17/19 07:15 Lactated Ringer's (Ringers, Lactated) Confirm Administered Dose 1,000 mls @ as directed .ROUTE .STK-MED ONE Stop: 10/17/19 07:34 Naloxone HCl 0.4 mg/ Dextrose/ (Lactated Ringer's) 1,001 mls @ 150 mls/hr IV .Q6H41M [facility] Last Admin: 10/18/19 05:46 Dose: 150 mls/hr Documented by: Cefoxitin Sodium 2 gm/ Sodium (Chloride) 50 mls @ 100 mls/hr IV Q6H [facility] Stop: 10/18/19 14:29 Last Admin: 10/18/19 14:19 Dose: 100 mls/hr Documented by: Magnesium Sulfate 2 gm/ Premix 50 mls @ 25 mls/hr IV Q6H [facility] Stop: 10/19/19 09:59 Last Admin: 10/19/19 09:00 Dose: 25 mls/hr Documented by: Lactated Ringer's (Ringers, Lactated) 500 mls @ 500 mls/hr IV ONETIME ONE Stop: 10/17/19 13:14 Last Admin: 10/17/19 12:15 Dose: 500 mls/hr Documented by: Lactated Ringer's (Ringers, Lactated) 500 mls @ 500 mls/hr IV ONETIME ONE Stop: 10/17/19 15:14 Last Admin: 10/17/19 14:15 Dose: 500 mls/hr Documented by: Potassium Phosphate 15 mmol/ (Premix) 250 mls @ 125 mls/hr IV Q2H [facility] Stop: 10/18/19 14:59 Last Admin: 10/18/19 14:21 Dose: 125 mls/hr Documented by: Insulin Glargine (Lantus Solostar) 10 units SUBCUT ONETIME ONE Stop: 10/16/19 21:01 Last Admin: 10/16/19 20:26 Dose: 10 units Documented by: Insulin Human Lispro (Humalog) 0 unit SUBCUT Q6H PRN; Protocol PRN Reason: MEDIUM CORRECTIONAL DOSING Last Admin: 10/17/19 10:09 Dose: 3 units Documented by: Insulin Human Lispro (Humalog) 0 unit SUBCUT Q6H [facility]; Protocol Last Admin: 10/19/19 03:58 Dose: 2 unit Documented by: Lidocaine/Epinephrine (Xylocaine 1% With Epinephrine 1:100,000) Confirm Administered Dose 50 ml .ROUTE .STK-MED ONE Stop: 10/17/19 06:31 Lidocaine/Epinephrine (Xylocaine 1% With Epinephrine 1:100,000) Confirm Administered Dose 50 ml .ROUTE .STK-MED ONE Stop: 10/19/19 06:47 Last Admin: 10/19/19 07:40 Dose: 50 ml Documented by: Meropenem (Merrem) Confirm Administered Dose 500 mg .ROUTE .STK-MED ONE Stop: 10/17/19 07:30 Last Admin: 10/17/19 07:53 Dose: 500 mg Documented by: Meropenem (Merrem) Confirm Administered Dose 500 mg .ROUTE .STK-MED ONE Stop: 10/19/19 06:47 Last Admin: 10/19/19 07:44 Dose: 500 mg Documented by: Midazolam HCl (Versed 1 Mg/Ml) Confirm Administered Dose 2 mg .ROUTE .STK-MED ONE Stop: 10/16/19 09:20 Neostigmine Methylsulfate (Neostigmine) Confirm Administered Dose 5 mg .ROUTE .STK-MED ONE Stop: 10/17/19 06:35 Ondansetron HCl (Zofran) Confirm Administered Dose 4 mg .ROUTE .STK-MED ONE Stop: 10/17/19 06:35 Propofol (Diprivan 20 Ml) Confirm Administered Dose 200 mg .ROUTE .STK-MED ONE Stop: 10/16/19 09:20 Propofol (Diprivan 20 Ml) Confirm Administered Dose 200 mg .ROUTE .STK-MED ONE Stop: 10/16/19 11:24 Propofol (Diprivan 20 Ml) Confirm Administered Dose 200 mg .ROUTE .STK-MED ONE Stop: 10/17/19 06:35 Propofol (Diprivan 20 Ml) Confirm Administered Dose 200 mg .ROUTE .STK-MED ONE Stop: 10/19/19 07:11 Propofol (Diprivan 20 Ml) Confirm Administered Dose 200 mg .ROUTE .STK-MED ONE Stop: 10/19/19 09:17 Rocuronium [place] (Zemuron) Confirm Administered Dose 50 mg .ROUTE .STK-MED ONE Stop: 10/17/19 06:35 Succinylcholine Chloride (Quelicin) Confirm Administered Dose 200 mg .ROUTE .K-MED ONE Stop: 10/17/19 06:35 - Exam Quality Assessment: DVT Prophylaxis General: Alert, Oriented, Moderate Distress Lungs: Clear to Auscultation, Normal Respiratory Effort Cardiovascular: Regular Rate, Regular Rhythm, No Murmurs GI/Abdominal Exam: Soft, No Organomegaly, Tender. No: Distended, Guarding, Rigid, Rebound Extremities: Non-Tender, Pedal Edema Sepsis Event Note - Evaluation Sepsis Screening Result: No Definite Risk - Focused Exam Vital Signs: Vital Signs Temp Pulse Pulse Resp BP BP Pulse Ox 10/19/19 10:00 78 12 148/68 H 94 L 10/19/19 09:39 77 11 L 132/62 94 L 10/19/19 09:36 81 12 152/95 H 98 10/19/19 09:24 77 12 126/56 L 95 10/19/19 09:09 78 12 129/56 L 95 10/19/19 09:03 129/56 L 10/19/19 08:54 78 11 L 144/62 H 99 10/19/19 08:39 96.1 F L 81 12 152/95 H 98 10/19/19 08:20 79 16 121/72 97 10/19/19 08:14 82 16 135/69 97 10/19/19 08:10 82 16 132/69 100 10/19/19 08:05 82 16 107/68 98 10/19/19 08:00 97.3 F 82 16 129/61 99 10/19/19 04:00 97.6 F 20 144/55 H 96 10/19/19 00:00 97.5 F 73 16 142/59 H 97 Consult PN Assessment/Plan Procedures: Procedures ASSAY OF CREATININE (06/13/18) ASSAY OF LACTIC ACID (01/09/18) ASSAY OF LIPASE (01/09/18) ASSAY OF TROPONIN QUANT (02/01/13) BREAST TOMOSYNTHESIS BI (04/25/18) C-REACTIVE PROTEIN (01/09/18) CHEST X-RAY 2VW FRONTAL&LATL (02/01/13) COMP SCREEN MAMMOGRAM ADD-ON (01/06/16) COMPLETE CBC W/AUTO DIFF WBC (01/09/18) COMPREHEN METABOLIC PANEL (01/09/18) CT HEAD/BRAIN W/O DYE (11/15/16) CT LUMBAR SPINE W/O DYE (12/11/13) CT NECK SPINE W/O DYE (11/15/16) CT UPPER EXTREMITY W/O DYE (04/03/16) CULTURE OTHR SPECIMN AEROBIC (05/12/15) ELECTROCARDIOGRAM TRACING (02/01/13) EMERGENCY DEPT VISIT (01/30/19) EMERGENCY DEPT VISIT (01/09/18) EMERGENCY DEPT VISIT (09/19/14) EMERGENCY DEPT VISIT (09/19/14) EMERGENCY DEPT VISIT (09/03/13) EMERGENCY DEPT VISIT (09/03/13) EVALUATION OF WHEEZING (04/03/15) EXC TR-EXT B9+CHELSEY 2.1-3CM (05/21/15) EXTRACRANIAL BILAT STUDY (09/24/13) HOT OR COLD PACKS THERAPY (03/01/17) HYDRATE IV INFUSION ADD-ON (01/09/18) IMMUNIZATION ADMIN (01/30/19) INFLUENZA ASSAY W/OPTIC (01/09/18) METABOLIC PANEL TOTAL CA (04/03/16) MRI BRAIN STEM W/O & W/DYE (06/13/18) MRI JOINT UPR EXTREM W/O DYE (06/15/17) MRI LUMBAR SPINE W/O DYE (09/26/13) ORTHOTIC MGMT&TRAING 1ST ENC (02/02/17) OT EVAL LOW COMPLEX 30 MIN (02/02/17) OT EVALUATION (07/11/14) PT EVAL LOW COMPLEX 20 MIN (01/11/17) REPAIR FINGER TENDON (01/30/19) ROUTINE VENIPUNCTURE (06/13/18) SCR MAMMO BI INCL CAD (04/25/18) SMEAR GRAM STAIN (05/12/15) TDAP VACCINE 7 YRS/> IM (01/30/19) THER/PROPH/DIAG INJ IV PUSH (01/09/18) THER/PROPH/DIAG INJ SC/IM (11/15/16) THER/PROPH/DIAG IV INF INIT (02/01/13) THERAPEUTIC EXERCISES (03/01/17) TX/PRO/DX INJ NEW DRUG ADDON (01/09/18) TX/PRO/DX INJ SAME DRUG 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 Kaiser TYPE 2 DIABETES [id number] by recent history -Long-acting insulin -4 times daily glucometers -Low-dose sliding scale Humalog HISTORY OF ASTHMA-minimal symptoms, rarely requires use of her inhaler -Albuterol as needed CHRONIC KIDNEY DISEASE STAGE IIIa -Closely monitor urine output and renal function
[2019-10-19] MEDS: glipiZIDE 5 MG Tab PO SCH ×2 (11:13→21:09)
[2019-10-19] MEDS: Magnesium Hydroxide 400 MG/5 ML Susp 30 ML Cup PO SCH ×2 (11:13→21:09)
[2019-10-19] MEDS: Bisacodyl 5 MG Tab PO SCH ×2 (11:13→21:06)
[2019-10-19] MEDS: Pantoprazole 40 MG Vial IVPUSH SCH (12:56)
[2019-10-19] MEDS: Sennosides 8.6 MG Tab PO SCH ×2 (12:56→21:09)
[2019-10-19] MEDS: Liraglutide (rDNA Origin) 0.6 MG/0.1 ML 3 ML Pen SUBCUT SCH (12:56)
[2019-10-19] MEDS: diphenhydrAMINE 50 MG/ML SDV IVPUSH PRN ×2 (13:39→19:42)
[2019-10-19] MEDS: hydrOXYzine HCL 100 MG/2 ML SDV IM PRN (14:48)
--- NOTE | 2019-10-19 17:15 | PN ---
DATE OF SERVICE: 10/18/2019 The patient has been afebrile with stable vital signs. No major problems have been noted overnight and NG output has been negligible. Urine output has now picked up nicely and creatinine is stable. We will back down on the IV rate and plan to proceed with a delayed primary closure tomorrow. Alejandro Kaiser MD /[id number]
[2019-10-19] MEDS: Insulin Glargine,Human Rec. Analog 100 Units/ML 3 ML Pen SUBCUT SCH (21:07)
[2019-10-19] MEDS: traZODone 50 MG Tab PO SCH (21:07)
[2019-10-19] MEDS: Latanoprost 0.005% Ophth Soln 2.5 ML Bottle EYELF SCH (21:09)
[2019-10-20] MEDS: diphenhydrAMINE 50 MG/ML SDV IVPUSH PRN (02:20)
[2019-10-20] MEDS: Dextrose 5%-Lactated Ringers 1,000 ML with Naloxone 0.4 MG IV SCH ×2 (04:38)
[2019-10-20] MEDS: Acetaminophen 325 MG Tab PO SCH ×4 (05:19→21:58)
[2019-10-20] MEDS ORDERED: Dextrose 5%-Lactated Ringers 1,000 ML IV SCH (06:00)
[2019-10-20] MEDS: Insulin Lispro 100 Unit/ML 3 ML KwikPen SUBCUT SCH ×4 (07:49→21:19)
[2019-10-20] MEDS: Pantoprazole 40 MG Tab.CR PO SCH (07:51)
[2019-10-20] MEDS: oxyCODONE 5 MG Tab PO PRN ×3 (07:51→20:11)
[2019-10-20] MEDS: ARIPiprazole 10 MG Tab PO SCH (08:10)
[2019-10-20] MEDS: Mirabegron 25 MG Tab Extended Release PO SCH (08:10)
[2019-10-20] MEDS: Sennosides 8.6 MG Tab PO SCH ×2 (08:11→21:57)
[2019-10-20] MEDS: glipiZIDE 5 MG Tab PO SCH ×2 (08:12→21:55)
[2019-10-20] MEDS: Sertraline 25 MG Tab PO SCH (08:14)
[2019-10-20] MEDS: Liraglutide (rDNA Origin) 0.6 MG/0.1 ML 3 ML Pen SUBCUT SCH (08:16)
[2019-10-20] MEDS: carBAMazepine 200 MG Tab PO SCH ×3 (08:16→21:57)
--- NOTE | 2019-10-20 09:20 | PN ---
DATE OF SERVICE: 10/19/2019 The patient is status post a colonoscopy on 10/15 at which time a sessile polyp was identified, and the patient underwent a right colectomy on 10/17/19 and had a delayed primary closure on 10/18. She has an epidural catheter in place, which will be left for another 24 hours and to get that along with Hope catheter out tomorrow and then start her on her oxycodone. She is on chronically a relatively high dose, 10 mg, 1 to 2 tablets of oxycodone q.4 hours p.r.n. pain. Also, we will start her on a full liquid diet at this point and restart her diabetic medications and begin some bowel stimulation. Otherwise, maximize activity and work with pulmonary toilet. Alejandro Kaiser MD /[id number]
--- NOTE | 2019-10-20 09:36 | PCM.CONSN ---
- General Info Date of Service: 10/20/19 Subjective Update: Ms. Grimes has remained stable over the last 24 hours. Vital signs have been good and she is remained afebrile. Tolerating current diet without difficulty, glucose levels have been within acceptable range. She now is passing gas and has had bowel movements. Functional Status: Reports: Tolerating Diet, Ambulating, Urinating - Review of Systems General: Reports: No Symptoms Pulmonary: Reports: No Symptoms Cardiovascular: Reports: No Symptoms Gastrointestinal: Reports: Abdominal Pain. Denies: Difficulty Swallowing, Hematochezia, Melena, Nausea, Vomiting - Patient Data Vitals - Most Recent: Last Vital Signs Temp 97.5 F 10/20/19 08:00 Pulse 71 10/20/19 08:00 Resp 18 10/20/19 08:00 BP 164/57 H 10/20/19 08:11 Pulse Ox 98 10/20/19 08:00 Weight - Most Recent: 214 lb I&O - Last 24 Hours: Intake & Output 10/19/19 10/20/19 10/20/19 22:59 06:59 14:59 Intake Total 969 1595 Output Total 800 700 Balance 169 895 Med Orders - Current: Current Medications Acetaminophen (Tylenol) 650 mg PO Q6H [facility] Last Admin: 10/20/19 05:19 Dose: 650 mg Documented by: Albuterol (Ventolin Hfa) 2 gm INH Q4H PRN PRN Reason: Shortness of Breath Aripiprazole (Abilify) 2.5 mg PO DAILY [facility] Last Admin: 10/20/19 08:10 Dose: 2.5 mg Documented by: Bisacodyl (Dulcolax) 10 mg PO BID [facility] Last Admin: 10/19/19 21:06 Dose: 10 mg Documented by: Carbamazepine (Tegretol Tab) 200 mg PO TID [facility] Last Admin: 10/20/19 08:16 Dose: 200 mg Documented by: Dextrose (Glutose 15) 15 gm PO ASDIRECTED PRN PRN Reason: HYPOGLYCEMIA Dextrose/Water (Dextrose 50% In Water) 50 ml IVPUSH ASDIRECTED PRN PRN Reason: HYPOGLYCEMIA Diphenhydramine HCl (Benadryl) 25 mg IVPUSH Q6H PRN PRN Reason: ITCHING Last Admin: 10/20/19 02:20 Dose: 25 mg Documented by: Glipizide (Glucotrol) 5 mg PO BID [facility] Last Admin: 10/20/19 08:12 Dose: 5 mg Documented by: Glucagon (Glucagen) 1 mg IM ASDIRECTED PRN PRN Reason: HYPOGLYCEMIA Hydroxyzine HCl (Vistaril) 75 mg IM Q4H PRN PRN Reason: PAIN Last Admin: 10/19/19 14:48 Dose: 75 mg Documented by: Fentanyl 2,500 mcg/ Sodium (Chloride) 250 mls @ 0 mls/hr EPIDUR TITRATE [facility]; Protocol Last Admin: 10/19/19 21:30 Dose: 120 mcg/hr, 12 mls/hr Documented by: Dextrose/Lactated Ringer's (Dextrose 5%-Lactated Ringers) 1,000 mls @ 80 mls/hr IV ASDIRECTED [facility] Last Admin: 10/20/19 06:14 Dose: 80 mls/hr Documented by: Insulin Glargine (Lantus Solostar) 18 units SUBCUT BEDTIME [facility] Last Admin: 10/19/19 21:07 Dose: 18 units Documented by: Insulin Human Lispro (Humalog) 0 unit SUBCUT QIDACANDBED [facility]; Protocol Last Admin: 10/20/19 07:49 Dose: Not Given Documented by: Latanoprost (Xalatan 0.005% Ophth Soln) 0 ml EYELF BEDTIME [facility] Last Admin: 10/19/19 21:09 Dose: 1 drop Documented by: Liraglutide (Victoza) 1.2 mg SUBCUT DAILY [facility] Last Admin: 10/20/19 08:16 Dose: 1.2 mg Documented by: Loratadine (Claritin) 10 mg PO DAILY [facility] Last Admin: 10/19/19 09:03 Dose: 10 mg Documented by: Magnesium Hydroxide (Milk Of Magnesia) 30 ml PO BID [facility] Last Admin: 10/19/19 21:09 Dose: Not Given Documented by: Mirabegron (Myrbetriq) 50 mg PO DAILY [facility] Last Admin: 10/20/19 08:10 Dose: 50 mg Documented by: Naloxone HCl (Narcan) 0.1 mg IVPUSH Q5M PRN PRN Reason: RESP RATE LESS THAN 6/MINUTE Naloxone HCl (Narcan) 0.4 mg IV ASDIRECTED PRN PRN Reason: ITCHING Ondansetron HCl (Zofran) 4 mg IVPUSH Q4H PRN PRN Reason: Nausea/Vomiting Oxycodone HCl (Oxycodone) 10 - 20 mg PO Q4H PRN PRN Reason: PAIN Last Admin: 10/20/19 07:51 Dose: 10 mg Documented by: Pantoprazole Sodium (Protonix) 40 mg PO ACBREAKFAST [facility] Last Admin: 10/20/19 07:51 Dose: 40 mg Documented by: Phenol (Phenaseptic Liquid) 0 ml MUCMEM Q2H PRN PRN Reason: Sore Throat Last Admin: 10/17/19 13:02 Dose: 1 dose Documented by: Quinapril HCl (Accupril) 10 mg PO DAILY [facility] Last Admin: 10/20/19 08:11 Dose: 10 mg Documented by: Senna (Senna) 8.6 mg PO BID [facility] Last Admin: 10/20/19 08:11 Dose: 8.6 mg Documented by: Sertraline HCl (Zoloft) 75 mg PO DAILY [facility] Last Admin: 10/20/19 08:14 Dose: 75 mg Documented by: Trazodone HCl (Trazodone) 150 mg PO BEDTIME [facility] Last Admin: 10/19/19 21:07 Dose: 150 mg Documented by: Trazodone HCl (Trazodone) 12.5 - 50 mg PO ASDIRECTED PRN PRN Reason: * Discontinued Medications Albuterol (Ventolin Hfa) 0 gm INH ONETIME ONE Stop: 10/17/19 06:01 Last Admin: 10/17/19 06:37 Dose: 2 inh Documented by: Bupivacaine HCl (Marcaine 0.5%) Confirm Administered Dose 50 ml .ROUTE .STK-MED ONE Stop: 10/17/19 06:31 Bupivacaine HCl (Marcaine 0.5%) Confirm Administered Dose 50 ml .ROUTE .STK-MED ONE Stop: 10/19/19 06:47 Last Admin: 10/19/19 07:40 Dose: 50 ml Documented by: Carbamazepine (Tegretol Tab) 200 mg PO TID [facility] Stop: 10/16/19 21:01 Last Admin: 10/16/19 20:27 Dose: 200 mg Documented by: Ropivacaine 48 ml/Dexamethasone 8 mg/Epinephrine HCl 0.4 mg/ Sodium Chloride 29.6 ml 0 ml NERVRT ASDIRECTED [facility] Last Admin: 10/19/19 07:32 Dose: 80 syringe Documented by: Dexamethasone (Dexamethasone) Confirm Administered Dose 4 mg .ROUTE .STK-MED ONE Stop: 10/17/19 06:35 Diphenhydramine HCl (Benadryl) 50 mg IVPUSH Q6H PRN PRN Reason: ITCHING Fentanyl (Sublimaze) Confirm Administered Dose 100 mcg .ROUTE .STK-MED ONE Stop: 10/16/19 09:20 Fentanyl (Sublimaze) Confirm Administered Dose 250 mcg .ROUTE .STK-MED ONE Stop: 10/17/19 06:34 Fentanyl (Sublimaze) Confirm Administered Dose 100 mcg .ROUTE .STK-MED ONE Stop: 10/19/19 07:11 Fentanyl (Sublimaze) Confirm Administered Dose 100 mcg .ROUTE .[facility] ONE Stop: 10/19/19 09:08 Glycopyrrolate (Robinul) Confirm Administered Dose 1 mg .ROUTE .ST-MED ONE Stop: 10/17/19 06:35 Dextrose/Lactated Ringer's (Dextrose 5%-Lactated Ringers) 1,000 mls @ 100 mls/hr IV [facility] Last Admin: 10/17/19 02:19 Dose: 100 mls/hr Documented by: Cefoxitin Sodium 2 gm/ Sodium (Chloride) 50 mls @ 100 mls/hr IV ONCALL ONE Stop: 10/17/19 06:29 Last Admin: 10/17/19 06:34 Dose: 100 mls/hr Documented by: Magnesium Sulfate 2 gm/ Premix 50 mls @ 25 mls/hr IV Q6H [facility] Stop: 10/16/19 23:59 Last Admin: 10/16/19 21:09 Dose: 25 mls/hr Documented by: Sodium Chloride (Normal Saline) Confirm Administered Dose 10 mls @ as directed .ROUTE .STK-MED ONE Stop: 10/17/19 07:15 Lactated Ringer's (Ringers, Lactated) Confirm Administered Dose 1,000 mls @ as directed .ROUTE .STK-MED ONE Stop: 10/17/19 07:34 Naloxone HCl 0.4 mg/ Dextrose/ (Lactated Ringer's) 1,001 mls @ 150 mls/hr IV .Q6H41M [facility] Last Admin: 10/18/19 05:46 Dose: 150 mls/hr Documented by: Cefoxitin Sodium 2 gm/ Sodium (Chloride) 50 mls @ 100 mls/hr IV Q6H [facility] Stop: 10/18/19 14:29 Last Admin: 10/18/19 14:19 Dose: 100 mls/hr Documented by: Magnesium Sulfate 2 gm/ Premix 50 mls @ 25 mls/hr IV Q6H [facility] Stop: 10/19/19 09:59 Last Admin: 10/19/19 09:00 Dose: 25 mls/hr Documented by: Lactated Ringer's (Ringers, Lactated) 500 mls @ 500 mls/hr IV ONETIME ONE Stop: 10/17/19 13:14 Last Admin: 10/17/19 12:15 Dose: 500 mls/hr Documented by: Lactated Ringer's (Ringers, Lactated) 500 mls @ 500 mls/hr IV ONETIME ONE Stop: 10/17/19 15:14 Last Admin: 10/17/19 14:15 Dose: 500 mls/hr Documented by: Naloxone HCl 0.4 mg/ Dextrose/ (Lactated Ringer's) 1,001 mls @ 80 mls/hr IV .[id number] [facility] Stop: 10/19/19 15:30 Last Admin: 10/19/19 09:02 Dose: Not Given Documented by: Potassium Phosphate 15 mmol/ (Premix) 250 mls @ 125 mls/hr IV Q2H [facility] Stop: 10/18/19 14:59 Last Admin: 10/18/19 14:21 Dose: 125 mls/hr Documented by: Naloxone HCl 0.4 mg/ Dextrose/ (Lactated Ringer's) 1,001 mls @ 80 mls/hr IV .[id number] [facility] Last Admin: 10/20/19 04:38 Dose: 80 mls/hr Documented by: Insulin Glargine (Lantus Solostar) 10 units SUBCUT ONETIME ONE Stop: 10/16/19 21:01 Last Admin: 10/16/19 20:26 Dose: 10 units Documented by: Insulin Human Lispro (Humalog) 0 unit SUBCUT Q6H PRN; Protocol PRN Reason: MEDIUM CORRECTIONAL DOSING Last Admin: 10/17/19 10:09 Dose: 3 units Documented by: Insulin Human Lispro (Humalog) 0 unit SUBCUT Q6H [facility]; Protocol Last Admin: 10/19/19 03:58 Dose: 2 unit Documented by: Lidocaine/Epinephrine (Xylocaine 1% With Epinephrine 1:100,000) Confirm Administered Dose 50 ml .ROUTE .STK-MED ONE Stop: 10/17/19 06:31 Lidocaine/Epinephrine (Xylocaine 1% With Epinephrine 1:100,000) Confirm Administered Dose 50 ml .ROUTE .STK-MED ONE Stop: 10/19/19 06:47 Last Admin: 10/19/19 07:40 Dose: 50 ml Documented by: Meropenem (Merrem) Confirm Administered Dose 500 mg .ROUTE .STK-MED ONE Stop: 10/17/19 07:30 Last Admin: 10/17/19 07:53 Dose: 500 mg Documented by: Meropenem (Merrem) Confirm Administered Dose 500 mg .ROUTE .STK-MED ONE Stop: 10/19/19 06:47 Last Admin: 10/19/19 07:44 Dose: 500 mg Documented by: Midazolam HCl (Versed 1 Mg/Ml) Confirm Administered Dose 2 mg .ROUTE .STK-MED ONE Stop: 10/16/19 09:20 Neostigmine Methylsulfate (Neostigmine) Confirm Administered Dose 5 mg .ROUTE .STK-MED ONE Stop: 10/17/19 06:35 Ondansetron HCl (Zofran) Confirm Administered Dose 4 mg .ROUTE .STK-MED ONE Stop: 10/17/19 06:35 Pantoprazole Sodium (Protonix Iv) 40 mg IVPUSH Q24H [facility] Last Admin: 10/19/19 12:56 Dose: 40 mg Documented by: Propofol (Diprivan 20 Ml) Confirm Administered Dose 200 mg .ROUTE .STK-MED ONE Stop: 10/16/19 09:20 Propofol (Diprivan 20 Ml) Confirm Administered Dose 200 mg .ROUTE .STK-MED ONE Stop: 10/16/19 11:24 Propofol (Diprivan 20 Ml) Confirm Administered Dose 200 mg .ROUTE .STK-MED ONE Stop: 10/17/19 06:35 Propofol (Diprivan 20 Ml) Confirm Administered Dose 200 mg .ROUTE .STK-MED ONE Stop: 10/19/19 07:11 Propofol (Diprivan 20 Ml) Confirm Administered Dose 200 mg .ROUTE .STK-MED ONE Stop: 10/19/19 09:17 Rocuronium [place] (Zemuron) Confirm Administered Dose 50 mg .ROUTE .STK-MED ONE Stop: 10/17/19 06:35 Succinylcholine Chloride (Quelicin) Confirm Administered Dose 200 mg .ROUTE .STK-MED ONE Stop: 10/17/19 06:35 - Exam Quality Assessment: DVT Prophylaxis General: Alert, Oriented, Cooperative, Moderate Distress Lungs: Clear to Auscultation, Normal Respiratory Effort Cardiovascular: Regular Rate, Regular Rhythm, No Murmurs GI/Abdominal Exam: Soft, No Organomegaly. No: Distended, Guarding, Rigid, Rebound, Tender Extremities: Non-Tender, Pedal Edema Sepsis Event Note - Evaluation Sepsis Screening Result: No Definite Risk - Focused Exam Vital Signs: Vital Signs Temp Pulse Resp BP BP Pulse Ox 10/20/19 08:11 164/57 H 10/20/19 08:00 97.5 F 71 18 164/57 H 98 10/20/19 04:00 96.9 F 74 16 141/69 H 97 10/20/19 00:17 96 F L 76 18 132/51 L 96 Consult PN Assessment/Plan Procedures: Procedures ASSAY OF CREATININE (06/13/18) ASSAY OF LACTIC ACID (01/09/18) ASSAY OF LIPASE (01/09/18) ASSAY OF TROPONIN QUANT (02/01/13) BREAST TOMOSYNTHESIS BI (04/25/18) C-REACTIVE PROTEIN (01/09/18) CHEST X-RAY 2VW FRONTAL&LATL (02/01/13) COMP SCREEN MAMMOGRAM ADD-ON (01/06/16) COMPLETE CBC W/AUTO DIFF WBC (01/09/18) COMPREHEN METABOLIC PANEL (01/09/18) CT HEAD/BRAIN W/O DYE (11/15/16) CT LUMBAR SPINE W/O DYE (12/11/13) CT NECK SPINE W/O DYE (11/15/16) CT UPPER EXTREMITY W/O DYE (04/03/16) CULTURE OTHR SPECIMN AEROBIC (05/12/15) ELECTROCARDIOGRAM TRACING (02/01/13) EMERGENCY DEPT VISIT (01/30/19) EMERGENCY DEPT VISIT (01/09/18) EMERGENCY DEPT VISIT (09/19/14) EMERGENCY DEPT VISIT (09/19/14) EMERGENCY DEPT VISIT (09/03/13) EMERGENCY DEPT VISIT (09/03/13) EVALUATION OF WHEEZING (04/03/15) EXC TR-EXT B9+CHELSEY 2.1-3CM (05/21/15) EXTRACRANIAL BILAT STUDY (09/24/13) HOT OR COLD PACKS THERAPY (03/01/17) HYDRATE IV INFUSION ADD-ON (01/09/18) IMMUNIZATION ADMIN (01/30/19) INFLUENZA ASSAY W/OPTIC (01/09/18) METABOLIC PANEL TOTAL CA (04/03/16) MRI BRAIN STEM W/O & W/DYE (06/13/18) MRI JOINT UPR EXTREM W/O DYE (06/15/17) MRI LUMBAR SPINE W/O DYE (09/26/13) ORTHOTIC MGMT&TRAING 1ST ENC (02/02/17) OT EVAL LOW COMPLEX 30 MIN (02/02/17) OT EVALUATION (07/11/14) PT EVAL LOW COMPLEX 20 MIN (01/11/17) REPAIR FINGER TENDON (01/30/19) ROUTINE VENIPUNCTURE (06/13/18) SCR MAMMO BI INCL CAD (04/25/18) SMEAR GRAM STAIN (05/12/15) TDAP VACCINE 7 YRS/> IM (01/30/19) THER/PROPH/DIAG INJ IV PUSH (01/09/18) THER/PROPH/DIAG INJ SC/IM (11/15/16) THER/PROPH/DIAG IV INF INIT (02/01/13) THERAPEUTIC EXERCISES (03/01/17) TX/PRO/DX INJ NEW DRUG ADDON (01/09/18) TX/PRO/DX INJ SAME DRUG LEAD [employer]EL[employer] (01/09/18) ULTRASOUND THERAPY (07/11/14) URINALYSIS AUTO W/SCOPE (01/09/18) X-RAY EXAM L-S SPINE 2/3 VWS (12/11/13) X-RAY EXAM OF SHOULDER (04/03/16) Problem List Initiated/Reviewed/Updated: Yes Plan: ASSESSMENT AND RECOMMENDATIONS STATUS POST PARTIAL COLON RESECTION-stable and doing well, status post delayed primary closure earlier today -Surgical care per Dr. Kaiser TYPE 2 DIABETES [id number] by recent history -Long-acting insulin -4 times daily glucometers -Low-dose sliding scale Humalog HISTORY OF ASTHMA-minimal symptoms, rarely requires use of her inhaler -Albuterol as needed CHRONIC KIDNEY DISEASE STAGE IIIa -Closely monitor urine output and renal function Ms. Grimes has been very stable over the past few days with no acute medical issues, hospitalist service will sign off of her care at this time. If we can be of further assistance in medical management during her hospital stay please feel free to reconsult.
[2019-10-20] MEDS: Loratadine 10 MG Tab PO SCH (11:06)
[2019-10-20] MEDS: Bisacodyl 5 MG Tab PO SCH ×2 (11:06→21:55)
[2019-10-20] MEDS: Magnesium Hydroxide 400 MG/5 ML Susp 30 ML Cup PO SCH ×2 (11:07→21:56)
[2019-10-20] MEDS ORDERED: Sodium Chloride 0.9% 10 ML Syringe FLUSH PRN (12:24)
[2019-10-20] MEDS ORDERED: Enoxaparin 40 MG/0.4 ML Syringe SUBCUT SCH (16:00)
[2019-10-20] MEDS: Insulin Glargine,Human Rec. Analog 100 Units/ML 3 ML Pen SUBCUT SCH (21:56)
[2019-10-20] MEDS: Latanoprost 0.005% Ophth Soln 2.5 ML Bottle EYELF SCH (21:58)
[2019-10-20] MEDS: traZODone 50 MG Tab PO SCH (21:58)
[2019-10-21] MEDS: oxyCODONE 5 MG Tab PO PRN ×4 (00:03→12:19)
[2019-10-21] MEDS: Acetaminophen 325 MG Tab PO SCH ×2 (04:11→10:15)
[2019-10-21] MEDS: Insulin Lispro 100 Unit/ML 3 ML KwikPen SUBCUT SCH ×2 (07:27→11:54)
[2019-10-21] MEDS: Pantoprazole 40 MG Tab.CR PO SCH (07:53)
[2019-10-21] MEDS: Liraglutide (rDNA Origin) 0.6 MG/0.1 ML 3 ML Pen SUBCUT SCH (08:14)
[2019-10-21] MEDS: ARIPiprazole 10 MG Tab PO SCH (08:16)
[2019-10-21] MEDS: Loratadine 10 MG Tab PO SCH (08:17)
[2019-10-21] MEDS: Sennosides 8.6 MG Tab PO SCH (08:17)
[2019-10-21] MEDS: Mirabegron 25 MG Tab Extended Release PO SCH (08:17)
[2019-10-21] MEDS: glipiZIDE 5 MG Tab PO SCH (08:17)
[2019-10-21] MEDS: Bisacodyl 5 MG Tab PO SCH (08:17)
[2019-10-21] MEDS: carBAMazepine 200 MG Tab PO SCH (08:17)
[2019-10-21] MEDS: Magnesium Hydroxide 400 MG/5 ML Susp 30 ML Cup PO SCH (08:17)
[2019-10-21] MEDS: Sertraline 25 MG Tab PO SCH (08:18)
[2019-10-21 11:13] VITALS: BP 146/64; PULSE 79
--- NOTE | 2019-10-21 15:03 | CONS ---
DATE OF SERVICE: 10/20/2019 REFERRING PHYSICIAN: Alejandro Kaiser MD CONSULTING PHYSICIAN: Mj Haddad MD REASON FOR CONSULTATION: Evaluation after right colectomy for sessile polyp on 10/17/2019. HISTORY OF PRESENT ILLNESS: This is a pleasant 69-year-old female who underwent the aforementioned surgery as above. She had been having some hematochezia, but that seems to be improving. The patient is resting appropriately. She has had some recently elevated fever and some shortness of breath. Modified by history of type 2 diabetes which is well- controlled. PAST MEDICAL HISTORY: Extensive including type 2 diabetes, obesity, history of melanoma, anxiety, bipolar depression, PTSD, panic attacks, chronic musculoskeletal pain including arthritis, back pain, neck pain, osteoarthritis, history of reflux disease, hypertension, shortness of breath, diabetic neuropathy, urine incontinence. Please see review of systems for further details. REVIEW OF SYSTEMS: GENERAL: Appropriate for her condition. HEENT: History of cataracts and glaucoma. CARDIOVASCULAR: No history of myocardial infarction. RESPIRATORY: History of asthma. GASTROINTESTINAL: History of gastroesophageal reflux disease. GENITOURINARY: Diabetic nephropathy and chronic urinary incontinence. GENITOURINARY: History of tubal ligation. PSYCHIATRIC: Multiple issues as described above. The remainder of review of systems was reviewed and is negative. PHYSICAL EXAMINATION: VITAL SIGNS: Temperature 98.9, T-max is 100 degrees, blood pressure 140/66, pulse 82, respirations 18, 96% on room air. HEENT: Pupils are equal. NECK: Supple. LUNGS: Small wheezes bilaterally at the bases. CARDIOVASCULAR: Regular rhythm and rate. ABDOMEN: Incision healing well. Dressing removed and replaced. EXTREMITIES: Full range of motion NEUROLOGIC: Oriented x3. PSYCHIATRIC: No gross depression. IMAGING: I did review. ASSESSMENT AND PLAN: Status post right hemicolectomy. We will advance diet as tolerated today and continue same cares. We will also add Lovenox as a prophylactic. Mj Haddad MD /[id number]
--- NOTE | 2019-10-22 11:20 | PN ---
DATE OF SERVICE: 10/21/2019 SUBJECTIVE: The patient is doing very well today. Pain is well controlled. No nausea, vomiting, shortness of breath, or chest pain. Having normal bowel movements. OBJECTIVE: VITAL SIGNS: Stable. CARDIOVASCULAR: Regular rhythm and rate. RESPIRATORY: Lungs clear to consultation bilaterally. Dressing intact. ASSESSMENT: Status post colectomy. PLAN: The patient will be discharged today. Please see discharge summary for further details, but the patient will be sent home on oxycodone pain medication, on a regular diet. Restrictions: No lifting more than 30 pounds for 30 days from the date of surgery. She will also have home health care as a followup, and we discussed signs, symptoms, and complications of infection, bleeding, fevers, chills, and others not listed here and how to address that if these complications do occur. Mj Haddad MD /[id number]
--- NOTE | 2019-10-23 09:57 | OR ---
DATE OF PROCEDURE: 10/19/2019 SURGEON: Alejandro Kaiser MD PREOPERATIVE DIAGNOSIS: Open abdominal incision. POSTOPERATIVE DIAGNOSIS: Open abdominal incision. PROCEDURE: Delayed primary closure of open abdominal incision. ANESTHESIA: Local plus IV sedation. INDICATIONS FOR PROCEDURE: The patient is status post open laparotomy, in which case the skin and subcutaneous tissue were felt to be high risk for wound infection if primary closure was undertaken. Given this, the wound was packed open for a planned delayed primary closure at this time. Potential risks of the procedure including an infection were reviewed, and the patient wishes to proceed. DETAILS OF PROCEDURE: The patient was taken to the operating room and placed in a supine position. IV sedation was administered, after which the operative dressing was taken down and wound inspected and found to be clean. The abdomen was then prepped and draped and bilateral subcostal transversus abdominis plane blocks were then placed with ultrasound guidance. The wound was then anesthetized with 1% lidocaine mixed with Marcaine and irrigated with meropenem-containing saline solution. Incision was closed with 2 layers of 3- 0 and 4-0 Vicryl stitch deep and then juan daniel for the skin. Dressing was applied. The patient was taken to the recovery room in satisfactory condition. There were no evident complications. Alejandro Kaiser MD /[id number]
--- NOTE | 2019-10-23 15:56 | OR ---
DATE OF PROCEDURE: 10/16/2019 SURGEON: Alejandro Kaiser MD PREOPERATIVE DIAGNOSIS: History of rectal bleeding. POSTOPERATIVE DIAGNOSES: 1. History of rectal bleeding, likely secondary to excoriated hemorrhoids. 2. Two small polyps in the cecum. 3. Large sessile polyp ascending colon. OPERATIVE PROCEDURES: Flexible colonoscopy with: 1. Polypectomy by snare technique of larger of the cecal polyps ([id number]). 2. Removal by cold biopsy forceps of the smaller cecal polyp ([id number]). 3. Injection of Blanquita ink into the submucosa adjacent to sessile polyp ascending colon ([id number]). ANESTHESIA: IV sedation. INDICATIONS FOR PROCEDURE: This is a 69-year-old female presenting with some episodes of rectal bleeding. Plan is to proceed with a flexible colonoscopy with biopsies and/or polypectomy as indicated. Potential risks including bleeding and perforation were discussed, and the patient wishes to proceed. DETAILS OF PROCEDURE: The patient was taken to the operating room and placed in a left lateral decubitus position. IV sedation was administered, after which the initial digital rectal exam was performed and was unremarkable. Colonoscope was passed into the rectum. Retroflexion revealed some excoriated hemorrhoids. The scope was then eventually passed to the level of the cecum. There were 2 small polyps present in the cecum; 1 was removed by means of snare technique and the other was by cold biopsy forceps as the latter was quite small, and both were sent for histologic evaluation. A polyp had been seen in the ascending colon on the way back and this was eventually pulled back. This polyp on closer examination with irrigation with water and such appeared to be fairly broad-based and sessile, and then the thin-walled ascending colon removal this would be high-risk for perforation. Given this, the decision was made to ihsan this with Blanquita ink for intraoperative identification, and plan to proceed with a sigmoid colon resection. The scope was then withdrawn. No additional abnormalities were noted, and the procedure was then concluded. The patient's rectal bleeding was likely related to the excoriated hemorrhoids as was quite proximal and the patient reports the episode of bleeding was bright red. Postprocedure after recovering from the anesthetic, the situation was discussed with the patient and she wished to be admitted for hydration and proceed with right colon resection tomorrow. Alejandro Kaiser MD /[id number]
--- NOTE | 2019-10-23 17:39 | OR ---
DATE OF PROCEDURE: 10/17/2019 SURGEON: Alejandro Kaiser MD PREOPERATIVE DIAGNOSIS: Sessile polyp involving ascending colon. POSTOPERATIVE DIAGNOSES: 1. Sessile polyp involving ascending colon. 2. Incarcerated incisional (trocar site) hernia. 3. Incarcerated umbilical hernia. OPERATIVE PROCEDURES: Exploratory laparotomy with: 1. Right colectomy (34859). 2. Repair of incarcerated incisional hernia (73908). 3. Repair of incarcerated umbilical hernia (23779). ANESTHESIA: General plus epidural. FUR DRUMMER: Bell Santiago PA-C INDICATIONS FOR PROCEDURE: This is a 69-year-old who yesterday was noted to have a sessile polyp in the ascending colon. She was admitted overnight for hydration and to undergo a right colectomy. Potential risks of procedure including bleeding, infection, and leaks from various GI tract closures as well as possible cardiopulmonary, septic, or hemorrhagic complications leading to were discussed, and the patient wishes to proceed. DETAILS OF PROCEDURE: The patient was taken to the operative room and placed in a supine position. After general endotracheal anesthesia was induced, a Hope catheter was inserted, and the abdomen prepped and draped. An epidural catheter was then placed prior to the general anesthetic induction. An oblique incision in the right abdomen was then made. This was more or less a low right subcostal incision. This was carried down through the full-thickness of abdominal wall. Upon entering the peritoneal cavity, the area of the mass in the ascending colon could be identified by palpation as well as the identification of blue dye injected yesterday. Otherwise, the examination showed the patient to have an incarcerated umbilical hernia. This was dissected free and reduced and at that point repaired with a [id number] stitch of #2 Vicryl stitch. During the entrance of the abdomen, the patient was noted to have an incarcerated trocar site incisional hernia, which was also excised in terms of the hernia contents and then was repaired at the end of the procedure. Other than the mass in right colon, no obvious pathology was seen. The divided end of the distal small bowel was then divided with the JANINE stapler as was the transverse colon roughly 3 cm proximal to the right colic vessels. The peritoneal reflection of distal small bowel, cecum, ascending, and descending colon were then divided. Following the mobilization of the colon at that level, care was taken to avoid injury to the duodenum and right ureter. The hepatic flexure was then similarly mobilized, and at that point, the mesentery between the divided distal small bowel and the divided transverse colon was divided with combination of vascular and mesenteric loads, and the specimen delivered from the field. Off the field, the specimen was inspected, and a sessile polyp that was identified yesterday was clearly within the resected specimen with wide margin. The GI tract continuity was then accomplished with a [id number] ileocolic anastomosis with 2 internal firings of the Endo JANINE 60 mm stapler. Common opening was closed transversely with same stapler, and the angles anastomosed and mesenteric defect approximated with some 3- 0 Vicryl stitch. At this point, no further problems noted. A Casey-Baum drain was placed through the right subcostal area and placed across the area of the anastomosis and from there down into the drain. The anastomosis was reinforced with some fibrin sealant, and the posterior peritoneum was initially closed with #2 Vicryl stitch as was the anterior rectus sheath and subcutaneous tissue and were felt to be high risk for wound infection. They were closed at some point and were packed open with Iodoform gauze for planned delayed primary closure in 48 hours. The patient was taken to the recovery room in satisfactory condition. Physician embalmer assistant, Bell Santiago PA-C, played an essential role in assisting in this case, helping to position the patient, retract structures as needed as well as suturing and cutting sutures when indicated. Her presence improved patient safety and decreased operative time. Alejandro Kaiser MD /[id number]
--- NOTE | 2019-10-24 09:05 | DISCH ---
FINAL DIAGNOSES: 1. Multiple polyps involving cecum and ascending colon with larger sessile polyp involving ascending colon. 2. Recent rectal bleeding likely related to excoriated hemorrhoids. 3. Incarcerated incisional trocar site hernia and unincarcerated umbilical hernias. SECONDARY DIAGNOSES: 1. History of type 2 diabetes mellitus. 2. Bipolar I disorder. 3. "Treatment agreement.". 4. History of chronic obstructive pulmonary disease. 5. History of hyperlipidemia. 6. History of esophageal reflux. 7. Osteoarthritis involving the lower leg. OPERATIVE PROCEDURE: 1. This was done on 10/15, flexible colonoscopy with: a. Polypectomy by snare technique. b. Polypectomy by cold biopsy forceps. c. Injection of [place]anqu[place] Ink in submucosa adjacent to sessile ascending colon polyp. 2. On 10/16, exploratory laparotomy with: a. Right colectomy. b. Repair of incarcerated incisional hernia. c. Repair of incarcerated umbilical hernia. d. Delayed primary closure of abdominal incision. SUMMARY: This is a 69-year-old female presenting with some episodes of rectal bleeding and to undergo a colonoscopy. On the date of admission, the patient underwent a colonoscopy. Her rectal bleeding appeared to be likely to have been related to some excoriated hemorrhoids. No bleeding was seen at that time. Following colonoscopy, she was noted to have multiple polyps in the cecum and ascending colon. After the 2 small ones had been removed, she was then noted to have a fairly large sessile one, this was felt to be not amenable to colonoscopic removal and the site was injected with some dye. Subsequently, the patient underwent an exploratory laparotomy the next day with right hemicolectomy and repair of the incarcerated incisional and umbilical hernias, and then finally on postop day #2, i.e. the night #4, the patient underwent a delayed primary closure of abdominal incision. Postoperatively, the patient had no significant problems. At the time of discharge, she was eating satisfactorily and bowels were moving. Blood sugar control had become reasonably good. She will be going home on her usual medications plus [place] 5/325 1 tablet q.6 hours p.r.n. #20. Follow up with Bell Santiago in [facility] on 10/29/2019.
== END 2019-10-21 13:17 | disposition home or self-care (01) | DRG 330 ==
LOC: EDSTATUS 07:30 → JP.SDS 08:25 → JP.SDSSCHI 08:25 → JP.ICU 13:30 → JP.SDS 14:15 → JP.ICU 10-20 16:30 → JP.MS 10-20 16:30
PROVIDERS: ADMIT Surgery; ATTEND Surgery
PROC: 0DBH8ZZ Excision of Cecum, Via Natural or Artificial Opening Endoscopic (ICD-10-PCS; 2019-10-16)
PROC: 0DBK0ZZ Excision of Ascending Colon, Open Approach (ICD-10-PCS; principal; 2019-10-17)
PROC: 0WQF0ZZ Repair Abdominal Wall, Open Approach (ICD-10-PCS; 2019-10-17)
PROC: 0WQF0ZZ Repair Abdominal Wall, Open Approach (ICD-10-PCS; 2019-10-17)
PROC: 0WQF0ZZ Repair Abdominal Wall, Open Approach (ICD-10-PCS; 2019-10-19)
DX: D12.2 Benign neoplasm of ascending colon (principal); K43.0 Incisional hernia with obstruction, without gangrene; K42.0 Umbilical hernia with obstruction, without gangrene; E66.9 Obesity, unspecified; F41.9 Anxiety disorder, unspecified; F32.9 Major depressive disorder, single episode, unspecified; F43.10 Post-traumatic stress disorder, unspecified; G89.29 Other chronic pain; M19.90 Unspecified osteoarthritis, unspecified site; M54.9 Dorsalgia, unspecified; M54.2 Cervicalgia; K21.9 Gastro-esophageal reflux disease without esophagitis; E11.42 Type 2 diabetes mellitus with diabetic polyneuropathy; R32 Unspecified urinary incontinence; J45.909 Unspecified asthma, uncomplicated; D12.0 Benign neoplasm of cecum; E11.21 Type 2 diabetes mellitus with diabetic nephropathy; Z98.51 Tubal ligation status; Z85.828 Personal history of other malignant neoplasm of skin; I12.9 Hypertensive chronic kidney disease with stage 1 through stage 4 chronic kidney disease, or unspecified chronic kidney disease; N18.3 Chronic kidney disease, stage 3 (moderate)
CPT/HCPCS: 36415; 80053; 82378; 82962; 83735; 83880; 84100; 85027; 86850; 86900; 86901; 88302; 88305; 88307; 93010; 94762; 99222-AI; 99231; A9270-GY; C9113; J0171; J0330; J0694; J1100; J1200; J1650; J1815; J1815-GY; J2185; J2250; J2310; J2405; J2704; J2710; J2795; J3010; J3410; J3475; J3490; J7050; J7120; J7121

== ENCOUNTER 2020-12-15 09:35 | Day surgery (SDC) | payer MEDICARE ==
[2020-12-15] MEDS ORDERED: fentaNYL 100 MCG/2 ML SDV ONE (10:20)
[2020-12-15] MEDS ORDERED: Propofol 200 MG/20 ML SDV ONE (10:20)
[2020-12-15] MEDS ORDERED: Midazolam 1 MG/ML 2 ML SDV ONE (10:20)
[2020-12-15] MEDS: Sodium Chloride 0.9% 1,000 ML IV SCH (10:42)
[2020-12-15 12:53] VITALS: BP 139/69; PULSE 77
--- NOTE | 2020-12-16 08:16 | OR ---
DATE OF PROCEDURE: 12/15/2020 SURGEON: Mj Haddad MD PROCEDURE: Colonoscopy. FINDINGS: 1. Normal colonic anastomosis. 2. Diverticulosis, mild. COMPLICATION: None. CAREER RESOURCE TECHNICIAN: None. ANESTHESIA: MAC. PREPROCEDURE DIAGNOSIS: History of right hemicolectomy due to previous polypoid lesion. POSTOPERATIVE DIAGNOSIS: History of right hemicolectomy due to previous polypoid lesion. RISKS: Risks, benefits, alternatives, and limitations including, but not limited to infection, bleeding, perforation, false positives, and false negatives were all explained to the patient and she wished to proceed. PROCEDURE IN DETAIL: The patient was placed in the left lateral decubitus position. Digital rectal exam was performed without abnormality. Scope was introduced and advanced atraumatically to the anastomosis. This appeared to be consistent with right hemicolectomy. No abnormalities noted. Normal architecture. No areas of concern. Scope was brought back to the remainder of the colon. No evidence of old or new blood. No masses. No polyps. Greater than 8 minutes spent removing the scope. The patient was noted to have diverticulosis. Diverticulosis was described as mild, limited to sigmoid colon without evidence of diverticulitis or bleeding. The patient tolerated the procedure well. Mj Haddad MD /[id number]
== END 2020-12-15 12:40 | disposition home or self-care (01) ==
LOC: JP.SDS 09:35
PROVIDERS: ATTEND Surgery
DX: Z12.11 Encounter for screening for malignant neoplasm of colon (principal); K57.30 Diverticulosis of large intestine without perforation or abscess without bleeding; Z98.0 Intestinal bypass and anastomosis status; Z90.49 Acquired absence of other specified parts of digestive tract
CPT/HCPCS: J2250; J2704; J3010; J7030

== ENCOUNTER 2023-01-20 10:31 | Emergency (ER) | payer MEDICARE ==
[2023-01-20] MEDS ORDERED: Sodium Chloride 0.9% 10 ML Syringe FLUSH PRN (11:11)
[2023-01-20] MEDS ORDERED: Ondansetron 4 MG/2 ML SDV IVPUSH ONE (11:12)
[2023-01-20] MEDS ORDERED: Lactated Ringers 1,000 ML IV SCH (11:15)
[2023-01-20 11:38] LABS: BASOPHILS PERCENT AUTO 0.1 % (0.1-1.3); HEMATOCRIT 35.5 % (34.3-46.0); HEMOGLOBIN 11.8 g/dL (11.2-15.5); IMMATURE GRAN ABSOLUTE AUTO 0.03 K/uL (0.00-0.23); IMMATURE GRAN PERCENT AUTO 0.3 % (0.0-0.7); LYMPHOCYTES ABSOLUTE AUTO 0.64 K/uL (0.8-3.3); LYMPHOCYTES PERCENT AUTO 6.8 % (11.4-47.7); MEAN CORPUSCULAR HGB CONC 33.2 g/dL (31.6-35.5); MEAN CORPUSCULAR VOLUME 93.2 fL (81.4-99.0); MONOCYTES ABSOLUTE AUTO 0.33 K/uL (0.20-0.90); MONOCYTES PERCENT AUTO 3.5 % (3.3-12.6); NEUTROPHILS ABSOLUTE AUTO 8.37 K/uL (1.0-7.6); NEUTROPHILS PERCENT AUTO 89.3 % (40.0-78.1); PLATELET COUNT,PLT 224 K/uL (130-375); RED BLOOD CELL COUNT 3.81 M/uL (3.77-5.24); WHITE BLOOD CELL COUNT,WBC 9.4 K/uL (3.2-11.0)
[2023-01-20 11:59] LABS: A/G RATIO 0.7 (1.2-2.2); ALANINE AMINOTRANSFERASE,ALT 33 U/L (12-78); ALBUMIN 3.5 g/dL (3.4-5.0); ALKALINE PHOSPHATASE 90 U/L (46-116); ASPARTATE AMNIOTRANSFERASE,AST 31 U/L (15-37); BASOPHILS ABSOLUTE AUTO 0.01 K/uL (0.00-0.10); BILIRUBIN TOTAL 0.5 mg/dL (0.2-1.0); BLOOD UREA NITROGEN,BUN 29 mg/dL (7-18); CALCIUM 9.1 mg/dL (8.5-10.1); CARBON DIOXIDE,CO2 26 mmol/L (21-32); CHLORIDE,CL 98 mmol/L (100-108); CREATININE 1.3 mg/dL (0.6-1.0); EST CRCL DRUG DOSING (CG) 30.03 mL/min; ESTIMATED GFR 43 mL/min (>60); GLUCOSE RANDOM 265 mg/dL (74-106); PROTEIN TOTAL,TP 8.3 g/dL (6.4-8.2); SODIUM,NA 135 mmol/L (140-148); TROPONIN I HIGH SENSITIVITY 12.3 pg/mL (<=60.3)
[2023-01-20 13:13] VITALS: BP 143/58; PULSE 87
== END 2023-01-20 13:24 | disposition home or self-care (01) ==
LOC: JP.ED 10:31
DX: K52.9 Noninfective gastroenteritis and colitis, unspecified (principal); I10 Essential (primary) hypertension; E78.00 Pure hypercholesterolemia, unspecified; J44.9 Chronic obstructive pulmonary disease, unspecified; E11.21 Type 2 diabetes mellitus with diabetic nephropathy; M19.90 Unspecified osteoarthritis, unspecified site; Z79.82 Long term (current) use of aspirin; Z79.84 Long term (current) use of oral hypoglycemic drugs; Z88.1 Allergy status to other antibiotic agents; Z88.8 Allergy status to other drugs, medicaments and biological substances; Z88.5 Allergy status to narcotic agent; Z91.018 Allergy to other foods; E66.9 Obesity, unspecified; Z68.41 Body mass index [BMI] 40.0-44.9, adult; Z79.899 Other long term (current) drug therapy
CPT/HCPCS: 36415; 80053; 83605; 83690; 84484; 85025; 93005; 96361; 96374; 99285; J2405; J3490; J7120

== ENCOUNTER 2024-04-24 13:30 | Emergency (ER) | payer MEDICARE ==
[2024-04-24] MEDS ORDERED: Sodium Chloride 0.9% 10 ML Syringe FLUSH PRN (14:16)
[2024-04-24 14:30] LABS: BASOPHILS ABSOLUTE AUTO 0.01 K/uL (0.00-0.10); BASOPHILS PERCENT AUTO 0.2 % (0.1-1.3); EOSINOPHILS ABSOLUTE AUTO 0.01 K/uL (0.00-0.40); EOSINOPHILS PERCENT AUTO 0.2 % (0.0-5.4); HEMATOCRIT 33.5 % (34.3-46.0); HEMOGLOBIN 11.1 g/dL (11.2-15.5); IMMATURE GRAN ABSOLUTE AUTO 0.01 K/uL (0.00-0.23); IMMATURE GRAN PERCENT AUTO 0.2 % (0.0-0.7); LYMPHOCYTES ABSOLUTE AUTO 1.09 K/uL (0.8-3.3); LYMPHOCYTES PERCENT AUTO 26.7 % (11.4-47.7); MEAN CORPUSCULAR HEMOGLOBIN 31.4 pg (31.6-35.5); MEAN CORPUSCULAR HGB CONC 33.1 g/dL (31.6-35.5); MEAN CORPUSCULAR VOLUME 94.6 fL (81.4-99.0); MONOCYTES ABSOLUTE AUTO 0.46 K/uL (0.20-0.90); MONOCYTES PERCENT AUTO 11.3 % (3.3-12.6); NEUTROPHILS PERCENT AUTO 61.4 % (40.0-78.1); PLATELET COUNT,PLT 122 K/uL (130-375); RED BLOOD CELL COUNT 3.54 M/uL (3.77-5.24); WHITE BLOOD CELL COUNT,WBC 4.1 K/uL (3.2-11.0)
[2024-04-24] MEDS: Sodium Chloride 0.9% 1,000 ML IV SCH (14:38)
[2024-04-24 14:51] LABS: ALANINE AMINOTRANSFERASE,ALT 35 U/L (12-78); ALBUMIN 3.3 g/dL (3.4-5.0); ALKALINE PHOSPHATASE 53 U/L (46-116); ASPARTATE AMNIOTRANSFERASE,AST 45 U/L (15-37); BILIRUBIN TOTAL 0.3 mg/dL (0.2-1.0); BLOOD UREA NITROGEN,BUN 37 mg/dL (7-18); CALCIUM 8.8 mg/dL (8.5-10.1); CARBON DIOXIDE,CO2 26 mmol/L (21-32); CHLORIDE,CL 101 mmol/L (100-108); EST CRCL DRUG DOSING (CG) 18.34 mL/min; ESTIMATED GFR 26 mL/min (>60); GLUCOSE RANDOM 140 mg/dL (74-106); POTASSIUM,K 4.3 mmol/L (3.6-5.2); PROTEIN TOTAL,TP 6.7 g/dL (6.4-8.2); SODIUM,NA 136 mmol/L (140-148)
[2024-04-24 14:53] LABS: ANION GAP 13.3 mmol/L (5.0-14.0)
[2024-04-24] MEDS: Acetaminophen/oxyCODONE 325-5 MG Tab PO ONE (14:53)
[2024-04-24 17:38] VITALS: BP 153/76; PULSE 71
== END 2024-04-24 18:09 | disposition home or self-care (01) ==
LOC: JP.ED 13:30
DX: I95.9 Hypotension, unspecified (principal); I12.9 Hypertensive chronic kidney disease with stage 1 through stage 4 chronic kidney disease, or unspecified chronic kidney disease; N18.4 Chronic kidney disease, stage 4 (severe); E78.00 Pure hypercholesterolemia, unspecified; E11.21 Type 2 diabetes mellitus with diabetic nephropathy; E11.40 Type 2 diabetes mellitus with diabetic neuropathy, unspecified; E11.22 Type 2 diabetes mellitus with diabetic chronic kidney disease; Z88.1 Allergy status to other antibiotic agents; Z88.8 Allergy status to other drugs, medicaments and biological substances; Z91.018 Allergy to other foods; Z79.51 Long term (current) use of inhaled steroids; Z79.82 Long term (current) use of aspirin; Z79.899 Other long term (current) drug therapy; Z90.49 Acquired absence of other specified parts of digestive tract
CPT/HCPCS: 36415; 80053; 83605; 84484; 85025; 96360; 99285; A9270; J7030

== ENCOUNTER 2024-08-10 16:57 | Emergency (ER) | payer MEDICARE ==
[2024-08-10] MEDS ORDERED: Sodium Chloride 0.9% 10 ML Syringe FLUSH PRN (18:14)
[2024-08-10 18:28] LABS: BASOPHILS ABSOLUTE AUTO 0.05 K/uL (0.00-0.10); BASOPHILS PERCENT AUTO 0.7 % (0.1-1.3); EOSINOPHILS ABSOLUTE AUTO 0.16 K/uL (0.00-0.40); EOSINOPHILS PERCENT AUTO 2.1 % (0.0-5.4); HEMATOCRIT 38.9 % (34.3-46.0); HEMOGLOBIN 12.8 g/dL (11.2-15.5); IMMATURE GRAN PERCENT AUTO 0.1 % (0.0-0.7); LYMPHOCYTES ABSOLUTE AUTO 2.81 K/uL (0.8-3.3); LYMPHOCYTES PERCENT AUTO 37.1 % (11.4-47.7); MEAN CORPUSCULAR HEMOGLOBIN 30.9 pg (31.6-35.5); MEAN CORPUSCULAR HGB CONC 32.9 g/dL (31.6-35.5); MONOCYTES ABSOLUTE AUTO 0.82 K/uL (0.20-0.90); MONOCYTES PERCENT AUTO 10.8 % (3.3-12.6); NEUTROPHILS ABSOLUTE AUTO 3.72 K/uL (1.0-7.6); NEUTROPHILS PERCENT AUTO 49.2 % (40.0-78.1); PLATELET COUNT,PLT 195 K/uL (130-375); RED BLOOD CELL COUNT 4.14 M/uL (3.77-5.24); WHITE BLOOD CELL COUNT,WBC 7.6 K/uL (3.2-11.0)
[2024-08-10 18:29] LABS: IMMATURE GRAN ABSOLUTE AUTO 0.01 K/uL (0.00-0.23)
[2024-08-10 18:49] LABS: ALANINE AMINOTRANSFERASE,ALT 29 U/L (12-78); ALBUMIN 3.5 g/dL (3.4-5.0); ALKALINE PHOSPHATASE 73 U/L (46-116); ASPARTATE AMNIOTRANSFERASE,AST 20 U/L (15-37); BILIRUBIN TOTAL 0.3 mg/dL (0.2-1.0); BLOOD UREA NITROGEN,BUN 21 mg/dL (7-18); CARBON DIOXIDE,CO2 28 mmol/L (21-32); CHLORIDE,CL 103 mmol/L (100-108); CREATININE 1.1 mg/dL (0.6-1.0); ESTIMATED GFR 52 mL/min (>60); GLUCOSE RANDOM 92 mg/dL (74-106); POTASSIUM,K 4.1 mmol/L (3.6-5.2); PROTEIN TOTAL,TP 7.2 g/dL (6.4-8.2); SODIUM,NA 141 mmol/L (140-148)
[2024-08-10 18:54] LABS: CALCIUM 9.6 mg/dL (8.5-10.1)
[2024-08-10 19:36] VITALS: BP 155/70; PULSE 67
[2024-08-10 20:54] LABS: APPEARANCE,URINE SLIGHTLY CLOUDY (CLEAR); BILIRUBIN,URINE NEGATIVE (NEGATIVE); COLOR,URINE YELLOW (YELLOW); GLUCOSE,URINE NEGATIVE (NEGATIVE); KETONES,URINE NEGATIVE (NEGATIVE); LEUKOCYTE ESTERASE,URINE TRACE (NEGATIVE); NITRITE,URINE NEGATIVE (NEGATIVE); OCCULT BLOOD,URINE NEGATIVE (NEGATIVE); PROTEIN,URINE NEGATIVE (NEGATIVE); UROBILINOGEN,URINE 0.2 EU/dL (0.2-1.0)
[2024-08-10 21:02] LABS: RBC,URINE 0-5 (0-5)
[2024-08-10 21:03] LABS: AMORPHOUS SEDIMENT,URINE NOT SEEN; BACTERIA,URINE FEW; EPITHELIAL CELLS,URINE MANY; MUCUS,URINE NOT SEEN
== END 2024-08-10 21:58 | disposition home or self-care (01) ==
LOC: JP.ED 16:57
DX: I10 Essential (primary) hypertension (principal); R10.32 Left lower quadrant pain; E78.00 Pure hypercholesterolemia, unspecified; J44.9 Chronic obstructive pulmonary disease, unspecified; E11.9 Type 2 diabetes mellitus without complications; Z90.49 Acquired absence of other specified parts of digestive tract; Z88.1 Allergy status to other antibiotic agents; Z88.8 Allergy status to other drugs, medicaments and biological substances; Z91.018 Allergy to other foods; Z79.51 Long term (current) use of inhaled steroids; Z79.899 Other long term (current) drug therapy; Z79.4 Long term (current) use of insulin; Z79.84 Long term (current) use of oral hypoglycemic drugs
CPT/HCPCS: 36415; 74176; 80053; 81001; 85025; 99284; 99285